=== PATIENT | female | born 1985 | race Caucasian/White ===

== ENCOUNTER 2019-06-26 17:37 | Emergency (ER) | payer OTHER, SELFPAY ==
[2019-06-26 17:46] VITALS: BP 113/69; PULSE 88; RESP 16; TEMP 36.7; O2SAT 100
--- NOTE | 2019-06-26 17:53 | ED.DENTAL ---
HPI - Dental/Oral General Chief complaint: Dental/Oral Stated complaint: tooth problems Time Seen by Provider: 06/26/19 17:48 Source: patient and RN notes reviewed Mode of arrival: ambulatory Limitations: no limitations History of Present Illness HPI Narrative: 33-year-old female presents with concern for dental pain. She reports left upper and lower dental pain. Reports she has an appointment with a dentist tomorrow. Reports long history of problems with her teeth. MD Complaint: tooth pain Teeth map: 1. 2. Broken teeth, caries Related Data Home Medications Medication Instructions Recorded Confirmed Linzess 06/26/19 buspirone 06/26/19 Allergies Allergy/AdvReac Type Severity Reaction Status Date / Time diphenhydramine Allergy Unknown Hives Verified 06/26/19 17:51 Review of Systems Review of Systems: Narrative: CONSTITUTIONAL: Denies malaise, chills, sweats, or fever. EYES: Denies visual changes, redness, or discharge. ENT: Denies rhinorrhea, congestion, sinus pain, otalgia or sore throat. Reports upper and lower dental pain CARDIOVASCULAR: Denies chest pain, palpitations RESPIRATORY: Denies cough or dyspnea. SKIN: Denies facial swelling MUSCULOSKELETAL: Denies myalgia. NEUROLOGIC: Denies headache. All systems reviewed & are unremarkable except as noted in HPI and below PMFSH Social History Social History Smoking status: Current every day smoker Gender identity (if verbalized by the patient): Female Comments At time of signature, agree with nursing past medical, surgical, social and family history. There is no relevant family history pertinent to the presenting complaint Exam Narrative: Exam Narrative: GENERAL: Well-appearing, well-nourished, and in no acute distress. HEAD: Normocephalic, atraumatic. EYES: PERRLA, conjunctivae clear ENT: Nares clear. Mucous membranes moist. Oropharynx without erythema edema, or lesions. No drooling. Many missing teeth, broken teeth, caries. No periapical abscess noted. NECK: Supple. CHEST: No respiratory distress. Speaks in full sentences. HEART: Regular rate and rhythm. SKIN: Warm, dry, no rash. NEURO: Alert and oriented x3. PSYCH: Normal mood and affect Course Course Emergency Course: Patient is aware of diagnosis, understands and agrees to treatment plan. Anticipatory guidance given. Patient agrees to follow-up as directed and is aware of reasons to seek care at the emergency department. Portions of this record may have been created with voice recognition software Vital Signs Vital signs: Vital Signs Temperature 98.0 F 06/26/19 17:46 Pulse Rate 88 06/26/19 17:46 Respiratory Rate 16 06/26/19 17:46 Blood Pressure 113/69 06/26/19 17:46 Pulse Oximetry 100 06/26/19 17:46 Temperature 98.0 F 06/26/19 17:46 Pulse Rate 88 06/26/19 17:46 Respiratory Rate 16 06/26/19 17:46 Blood Pressure 113/69 06/26/19 17:46 Pulse Oximetry 100 06/26/19 17:46 Reviewed. MDM - Dental/Oral MDM Narrative Medical decision making narrative: Patients pain and complaint coupled with physical findings are consistant with dentalgia. There are no focal signs of space occupying lesions that are compromising to the airway; no dysphagia, odynophagia, dysphonia, or dyspnea. No uvular deviation or soft palate edema. Patient is non-toxic appearing. The floor of the mouth is soft with no signs of Jason's Angina; no induration below mandible, no neck pain. Patient is without trismus or drooling and able to swallow secretions. Patient is felt appropriate for discharge home with dental follow up. Critical Care Time Critical Care Time Critical Care Time: No Discharge Plan Discharge Clinical Impression: Toothache Patient Disposition: Home, Self-Care Condition: Stable Instructions: Antibiotic Form, Toothache (ED) Additional Instructions: Take antibiotic as directed Avoid tempe
== END 2019-06-26 18:00 | disposition home or self-care (01) ==
PROVIDERS: Emergency Provider Nurse Practitioner; PCP Family Medicine
DX: K08.89 Other specified disorders of teeth and supporting structures (principal); F17.200 Nicotine dependence, unspecified, uncomplicated
CPT/HCPCS: 99213; G0463

== ENCOUNTER 2019-11-29 17:45 | Emergency (ER) | payer OTHER, SELFPAY ==
[2019-11-29 18:20] VITALS: BP 105/64; PULSE 80; RESP 16; TEMP 36.8; O2SAT 100
[2019-11-29 18:42] LABS: Basophils Percent Auto 0.4 % (0.2-1.2); Eosinophils Absolute Auto 0.2 K/mm3 (0-0.3); Eosinophils Percent Auto 3.5 % (0-4.4); Hematocrit 34.9 % (37.0-47.0); Hemoglobin 11.8 g/dL (12.0-15.0); Immature Granulocyte Absolute 0.01 K/mm3 (0.00-0.031); Immature Granulocyte Percent A 0.2 % (0-0.5); Lymphocytes Percent Auto 38.5 % (18.3-44.2); Mean Corpuscular HGB Conc 33.8 g/dl (32-36); Mean Corpuscular Hemoglobin 30.2 pg (26-34); Mean Corpuscular Volume 89.3 fl (80-100); Mean Platelet Volume 10.6 fl (7.4-10.4); Monocytes Absolute Auto 0.5 K/mm3 (0.1-0.6); Monocytes Percent Auto 9.1 % (2.6-8.5); Neutrophils Absolute Auto 2.8 K/mm3 (1.3-6.7); Neutrophils Percent Auto 48.3 % (45.5-73.1); Platelet Count Result 190 k/mm3 (150-375); Red Blood Count 3.91 M/mm3 (4.2-5.4); Red Cell Distribution Width 12.2 % (11.5-14.5); White Blood Count 5.7 K/mm3 (4.5-10.0)
[2019-11-29 18:45] LABS: Alanine Aminotransferase 12 U/L (4-35); Albumin Level 4.6 g/dL (3.5-5.1); Alkaline Phosphatase 48 U/L (38-126); Anion Gap 10 mmol/L (8-16); Aspartate Amino Transferase 20 U/L (14-36); Bilirubin,Total 0.3 mg/dL (0.2-1.3); Blood Urea Nitrogen 13 mg/dL (7-17); Calcium 9.4 mg/dL (8.4-10.2); Carbon Dioxide 28 mmol/L (22-30); Chloride 101 mmol/L (98-107); Estimated CRCL calculation 89 ml/min; Estimated Glomerular Filt Rate > 60; Glucose 81 mg/dL (65-105); Potassium 4.2 mmol/L (3.4-5.0); Sodium 139 mmol/L (137-145)
[2019-11-29 18:52] LABS: Prothrombin Time 13.2 Seconds (11.1-14.7)
[2019-11-29 18:53] LABS: Partial Thromboplastin Time 29.2 SECONDS (22.3-36.8)
[2019-11-29 19:32] VITALS: BP 101/62; BP 102/68; BP 104/64; PULSE 84; PULSE 87; PULSE 98
--- NOTE | 2019-11-29 20:30 | ED.GIBLEED ---
HPI - GI Bleed General Chief complaint: GI Bleed Stated complaint: rectal bleeding 1-2 pads per hour Time Seen by Provider: 11/29/19 19:44 Source: patient Mode of arrival: ambulatory Limitations: no limitations History of Present Illness HPI Narrative: This patient is a 33 year old female with history of hemorrhoids who presents for evaluation of bright red blood per rectum. Patient states she was having a bowel movement this afternoon and then she saw bright red blood on her tissue. She states she continued to see blood when she wiped for 2 hours. She states in ER she now sees streaks of dark blood on her tissue. She denies abdominal pain, nausea, vomiting or lightheadedness. Related Data Home Medications Medication Instructions Recorded Confirmed Linzess 06/26/19 buspirone 06/26/19 Allergies Allergy/AdvReac Type Severity Reaction Status Date / Time diphenhydramine Allergy Unknown Hives Verified 11/29/19 19:31 Review of Systems Review of Systems: All systems reviewed & are unremarkable except as noted in HPI and below Constitutional: Constitutional: Denies chills and Denies fever(s) Cardiovascular: Cardiovascular: Denies chest pain Respiratory: Respiratory: Denies dyspnea Gastrointestinal: Gastrointestinal: Denies abdominal pain, Denies diarrhea, Denies nausea and Denies vomiting [facility] Social History Social History Smoking status: Current every day smoker Gender identity (if verbalized by the patient): Female Exam Const: General: alert Orientation/consciousness: patient oriented x3 HENMT: Head: normocephalic and atraumatic Ears: TM's normal bilaterally Face and sinus: face symmetric Eyes: EOM: EOMs intact bilaterally Neck: Neck: normal visual inspection Chest: Chest palpation & inspection: normal inspection of the chest Resp: Effort & Inspection: normal respiratory effort, no retractions and no use of accessory muscles Auscultation: clear to auscultation bilaterally and no wheezes Cardio: Rate: regular rate Rhythm: regular rhythm Heart sounds: no murmurs GI: GI Palp: Yes Soft to palpation, No Tenderness to palpation present (GI), No Guarding due to palpation present (GI) and No Rigid due to palpation Rectal Exam: External hemorrhoid(s) present and other (no bleeding, no blood in digital exam) Skin: General skin exam: normal color Rashes: no rashes Course Reevaluation(s) Reevaluation #1: PAtient is no longer having bleeding and her hemoglobin is stable. Date: 11/29/19 Time: 20:38 Vital Signs Vital signs: Vital Signs Temperature 98.2 F 11/29/19 18:20 Pulse Rate 80 11/29/19 18:20 Respiratory Rate 16 11/29/19 18:20 Blood Pressure 105/64 11/29/19 18:20 Pulse Oximetry 100 11/29/19 18:20 Temperature 98.0 F 11/29/19 21:06 Pulse Rate 77 11/29/19 21:06 Respiratory Rate 18 11/29/19 21:06 Blood Pressure 128/80 11/29/19 21:06 Pulse Oximetry 99 11/29/19 21:06 MDM - GI Bleed Lab Data Attestation: I reviewed the patient's lab results. Result diagrams: 11/29/19 18:25 11/29/19 18:25 Labs: Lab Results 11/29/19 11/29/19 11/29/19 Range/Units 18:25 18:25 18:25 WBC 5.7 (4.5-10.0) K/mm3 RBC 3.91 L (4.2-5.4) M/mm3 Hgb 11.8 L (12.0-15.0) g/dL Hct 34.9 L (37.0-47.0) % MCV 89.3 (80-100) fl MCH 30.2 (26-34) pg MCHC 33.8 (32-36) g/dl RDW 12.2 (11.5-14.5) % Plt Count 190 (150-375) k/mm3 MPV 10.6 H (7.4-10.4) fl Immature Gran % (Auto) 0.2 (0-0.5) % Neut % (Auto) 48.3 (45.5-73.1) % Lymph % (Auto) 38.5 (18.3-44.2) % Charlton % (Auto) 9.1 H (2.6-8.5) % Eos % (Auto) 3.5 (0-4.4) % Baso % (Auto) 0.4 (0.2-1.2) % Lymph # (Auto) 2.20 (0.9-3.2) K/mm3 Charlton # (Auto) 0.5 (0.1-0.6) K/mm3 Eos # (Auto) 0.2 (0-0.3) K/mm3 Baso # (Auto) 0.0 (0.0-0.1) K/mm3 Abs Immat Gran (auto)
[2019-11-29 21:06] VITALS: BP 128/80; PULSE 77; RESP 18; TEMP 36.7; O2SAT 99
== END 2019-11-29 21:06 | disposition home or self-care (01) ==
PROVIDERS: Emergency Medicine; Emergency Provider General Practice; PCP Family Medicine
DX: K64.4 Residual hemorrhoidal skin tags (principal); K62.5 Hemorrhage of anus and rectum; F17.200 Nicotine dependence, unspecified, uncomplicated
CPT/HCPCS: 36415; 80053; 85025; 85610; 85730; 86850; 86900; 86901; 99283

== ENCOUNTER 2020-08-06 18:52 | Emergency (ER) | payer OTHER, SELFPAY ==
[2020-08-06 19:03] VITALS: BP 110/70; PULSE 108; RESP 16; TEMP 36.6; O2SAT 100
--- NOTE | 2020-08-06 19:11 | ED.URI ---
HPI - URI/Sore Throat General Chief Complaint: Upper Respiratory Infection Stated Complaint: runny nose/cough Source: patient Mode of arrival: ambulatory Limitations: no limitations History of Present Illness HPI Narrative: Patient is a 34 year old female who presents complaining of sinus pain and pressure x 10 days. Patient reports headache. Patient reports intermittent rhinorrhea and congestion. Patient reports cough x 1 day. She denies shortness of breath. Patient denies taking [id number] medications at this time. Patient denies known exposure to Covid. MD elicited complaint: nasal congestion and sinus pain Related Data Home Medications Medication Instructions Recorded Confirmed BuSpar 08/06/20 Linzess 08/06/20 Allergies Allergy/AdvReac Type Severity Reaction Status Date / Time diphenhydramine Allergy Unknown Hives Verified 08/06/20 19:09 Review of Systems Review of Systems: Narrative: CONSTITUTIONAL: Denies fever, chills, or sweats. EYES: Denies visual changes, redness, or discharge. ENT: Reports rhinorrhea, congestion and facial pain, denies sore throat, or otalgia. CARDIOVASCULAR: Denies chest pain, palpitations, or edema. RESPIRATORY: Reports cough or dyspnea. GASTROINTESTINAL: Denies abdominal pain, nausea, vomiting, or diarrhea. GENITOURINARY: Denies dysuria or hematuria. SKIN: Denies rash or itching. MUSCULOSKELETAL: Denies back pain, joint pain, or myalgia. NEUROLOGIC: Reports headache, denies numbness, dizziness, or weakness. PSYCHIATRIC: Denies anxiety or depression. [facility] Past Medical History Medical History Anxiety IBS (irritable bowel syndrome) Surgical History Surgical History H/O laparoscopy H/O tubal ligation H/O: hysterectomy Social History Social History Smoking status: Current every day smoker Gender identity (if verbalized by the patient): Female Comments At the time of signature, I have reviewed and agree with nursing past medical, surgical, social, and family history unless otherwise noted. Please see nursing chart for further information. There is no relevant family history pertinent to the presenting complaint. Exam Narrative: Exam Narrative: GENERAL: Well-appearing, well-nourished, and in no acute distress. HEAD: Normocephalic, atraumatic. EYES: EOMI. No redness or drainage. Conjunctiva are normal. ENT: Mucous membranes pink and moist. Nares clear. No rhinorrhea. TMs normal bilaterally. Throat mild erythema. Uvula midline. Maxillary sinus tenderness with palpation NECK: AROM. Supple. No lymphadenopathy. CHEST: No respiratory distress. Clear to auscultation. HEART: Regular rate and rhythm. EXTREMITIES: Normal range of motion. SKIN: Warm, dry, no rash. NEURO: No focal deficits. Alert and oriented x3. Gait steady. PSYCH: Normal affect. No signs of depression or anxiety. Course Vital Signs Vital signs: Vital Signs Temperature 36.6 C 08/06/20 19:03 Pulse Rate 108 H 08/06/20 19:03 Respiratory Rate 16 08/06/20 19:03 Blood Pressure 110/70 08/06/20 19:03 Pulse Oximetry 100 08/06/20 19:03 Temperature 36.6 C 08/06/20 19:03 Pulse Rate 108 H 08/06/20 19:03 Respiratory Rate 16 08/06/20 19:03 Blood Pressure 110/70 08/06/20 19:03 Pulse Oximetry 100 08/06/20 19:03 Reviewed MDM - URI/Sore Throat MDM Narrative Medical decision making narrative: Patient most likely has sinusitis. Antibiotics to be prescribed at this time. Discussed with patient follow-up care. Patient is stable for discharge home with outpatient follow-up as needed. Differential Diagnosis Differential diagnosis: Likely upper respiratory infection, otitis media, sinusitis, viral infection, bronchitis and pharyngitis Discharge Plan Discharge Clinical Impression: Sinusitis Qualifiers: Sinus
== END 2020-08-06 19:37 | disposition home or self-care (01) ==
PROVIDERS: Emergency Provider Nurse Practitioner; PCP Family Medicine
DX: J01.00 Acute maxillary sinusitis, unspecified (principal); F17.200 Nicotine dependence, unspecified, uncomplicated
CPT/HCPCS: 99213; G0463

== ENCOUNTER 2020-10-30 15:21 | Emergency (ER) | payer OTHER, SELFPAY ==
--- NOTE | 2020-10-30 15:50 | ED.WOUNDLAC ---
HPI - Wound/Laceration General Chief Complaint: Wound/Laceration Stated Complaint: spider bite Time Seen by Provider: 10/30/20 15:50 Source: patient Limitations: no limitations History of Present Illness HPI narrative: Lachelle Birmingham is a 34 yo female with a PMH of PTSD, anxiety and depression, who comes to [facility] with a bite on her inside of her left Floria arm that happened at 2:30 this afternoon. She states she felt a pinch and that in the last hour has increased from a pinch to a 1 cm erythematous area Related Data Home Medications Medication Instructions Recorded Confirmed BuSpar 08/06/20 Linzess 08/06/20 Allergies Allergy/AdvReac Type Severity Reaction Status Date / Time diphenhydramine Allergy Unknown Hives Verified 08/06/20 19:09 Review of Systems Review of Systems: Narrative: CONSTITUTIONAL: Denies fever, chills, sweats. EYES: Denies visual changes, redness, discharge. ENT: Denies rhinorrhea, congestion, sore throat, otalgia. CARDIOVASCULAR: Denies chest pain, palpitations, edema. RESPIRATORY: Denies dyspnea, wheezing, cough GASTROINTESTINAL: Denies abdominal pain, nausea, vomiting, diarrhea. GENITOURINARY: Denies dysuria, hematuria, abnormal discharge SKIN: Denies rash . Insect bite to the inside of left forearm NEUROLOGIC: Denies numbness, or focal weakness. PSYCHIATRIC: Denies anxiety or depression. [facility] Past Medical History Medical History (Updated 10/30/20 @ 16:06 by Lamar Mckeon CNP) Anxiety Depression IBS (irritable bowel syndrome) PTSD (post-traumatic stress disorder) Surgical History Surgical History H/O laparoscopy H/O tubal ligation H/O: hysterectomy Family History Family History (Updated 10/30/20 @ 16:01 by Lamar Mckeon CNP) Other Alcoholism in family Depression Social History Social History (Updated 10/30/20 @ 16:02 by Lamar Mckeon CNP) Smoking packs per day: 0.5 Smoking cigarettes per day: 10.0 Smoking status: Current every day smoker Alcohol intake: current Gender identity (if verbalized by the patient): Female Comments At time of signature, I agree with nursing past medical, surgical, social and family history. There is no relevant family history pertinent to the presenting complaint. Exam Narrative: Exam Narrative: GENERAL: This is a well-nourished, well-developed patient, in mild distress. Anxious HEAD: normocephalic, atraumatic. EYES: PERRL. Sclera clear/white. Vision is grossly intact. EARS: External ears normal,. Hearing grossly intact. NOSE: External nose normal without nasal discharge, nares without redness, no rhinorrhea. THROAT: Mucous membranes moist, NECK: Neck supple, CARDIOVASCULAR: Regular rate and rhythm without murmurs, gallops, or rubs. RESPIRATORY: Clear to auscultation. Breath sounds equal bilaterally. No wheezes, rales, or rhonchi. GASTROINTESTINAL: Abdomen soft,, SKIN: warm, intact with 1 cm erythematous mildly indurated lesion to left palmar forearm. NEURO: awake, alert, and oriented to person, place and time. There were no obvious focal neurologic abnormalities. Steady gait EXTREMITIES: Normal range of motion. BACK: Nontender without deformity Course Course Emergency Course: Patient brought by insect while sitting on porch about an hour ago and area is a 1 cm raised red area that is both tender and itches. Patient is allergic to Benadryl Given dose of prednisone Prednisone x3 days, Vistaril 25 3 times daily, Pepcid 20 mg x 3 days Vital Signs Vital signs: Vital Signs Temperature 98.2 F 10/30/20 15:52 Pulse Rate 101 H 10/30/20 15:52 Respiratory Rate 10/30/20 15:52 Blood Pressure 98/77 L 10/30/20 15:52 Pulse Oximetry 98 10/30/20 15:52 Temperature 98.2 F 10/30/20 15:52 Pulse Rate 101 H 10/30/20 15:52 Respiratory Rate 10/30/20 15:52 Blood Pressure 98/77 L 10/30/20 15:52 Pulse Oximetry 98 10/30/20 15:52
[2020-10-30 15:52] VITALS: BP 98/77; PULSE 101; RESP 20; TEMP 36.8; O2SAT 98
[2020-10-30] MEDS: predniSONE 20 MG TABLET 60 MG PO (16:16)
== END 2020-10-30 16:28 | disposition home or self-care (01) ==
PROVIDERS: Emergency Provider Nurse Practitioner
DX: S50.862A Insect bite (nonvenomous) of left forearm, initial encounter (principal); W57.XXXA Bitten or stung by nonvenomous insect and other nonvenomous arthropods, initial encounter; F17.210 Nicotine dependence, cigarettes, uncomplicated
CPT/HCPCS: 99213; G0463; J7512

== ENCOUNTER 2020-12-31 01:35 | Emergency (ER) | payer OTHER, SELFPAY ==
--- NOTE | 2020-12-31 01:48 | ED.ABDPAIN ---
HPI - Abdominal Pain General Chief Complaint: Abdominal Pain Stated Complaint: epigastric pain Time Seen by Provider: 12/31/20 01:46 Source: patient Mode of arrival: ambulatory Limitations: no limitations History of Present Illness HPI narrative: Patient is a 35-year-old female complain of epigastric pain, substernal pain, burning, 6 out of 10, nonradiating, started after eating dinner tonight. Patient denies any shortness of breath, nausea, vomiting, diarrhea, fever or chills. Patient denies any urinary symptoms. Related Data Home Medications Medication Instructions Recorded Confirmed BuSpar 08/06/20 Linzess 08/06/20 Allergies Allergy/AdvReac Type Severity Reaction Status Date / Time diphenhydramine Allergy Unknown Hives Verified 12/31/20 02:52 Review of Systems Review of Systems: All systems reviewed & are unremarkable except as noted in HPI and below Constitutional: Constitutional: Denies body ache(s), Denies chills, Denies excessive sweating, Denies fatigue, Denies fever(s), Denies headache(s), Denies lethargy, Denies malaise, Denies weakness and Denies weight loss Eyes: Eyes: Denies blurry vision, Denies change in vision and Denies loss of vision ENT: Denies dizziness, Denies ear discharge, Denies headache(s), Denies lip swelling, Denies epistaxis, Denies nasal congestion, Denies neck pain, Denies throat swelling and Denies tongue swelling Cardiovascular: Cardiovascular: Denies chest pain, Denies chest pain at rest, Denies chest pain with activity, Denies diaphoresis, Denies rapid heart rate, Denies edema, Denies irregular heart rhythm, Denies lightheadedness, Denies palpitations, Denies dyspnea and Denies dyspnea on exertion Respiratory: Respiratory: Denies chest congestion, Denies cough, Denies hemoptysis, Denies dyspnea and Denies dyspnea on exertion Gastrointestinal: Gastrointestinal: Denies melena, Denies hematochezia, Denies diarrhea, Denies nausea, Denies vomiting and Denies hematemesis Musculoskeletal: Musculoskeletal: Denies abnormal gait, Denies deformity, Denies joint swelling, Denies limited range of motion, Denies neck pain and Denies numbness Neurologic: Denies Abnormal speech present, Denies abnormal gait, Denies confusion, Denies dizziness, Denies headache(s), Denies focal weakness, Denies loss of vision, Denies numbness, Denies Other visual disturbances, Denies Sensory deficit (Neuro) and Denies weakness Psychiatric: Psychiatric: Denies confusion, Denies depression, Denies auditory hallucinations, Denies homicidal ideation and Denies suicidal ideation Endocrine: Endocrine: Denies cold intolerance, Denies excessive sweating, Denies fatigue, Denies heat intolerance and Denies palpitations Hematologic/Lymphatic: Hematologic/Lymphatic: Denies easy bleeding and Denies easy bruising Allergic/Immunologic: Allergic/Immunologic: Denies lip swelling, Denies throat swelling and Denies tongue swelling PMFSH Past Medical History Medical History Anxiety Depression IBS (irritable bowel syndrome) PTSD (post-traumatic stress disorder) Surgical History Surgical History H/O laparoscopy H/O tubal ligation H/O: hysterectomy Family History Family History Other Alcoholism in family Depression Social History Social History Smoking packs per day: 0.5 Smoking cigarettes per day: 10.0 Smoking status: Current every day smoker Alcohol intake: current Gender identity (if verbalized by the patient): Female Exam Const: General: cooperative, healthy appearing, comfortable, no acute distress, well developed, alert and awake; No confusion Orientation/consciousness: oriented to person, oriented to place, oriented to time, patient oriented x3 and No confusion Limitations: no li
[2020-12-31 01:57] LABS: Basophils Percent Auto 0.3 % (0.2-1.2); Eosinophils Absolute Auto 0.3 K/mm3 (0-0.3); Eosinophils Percent Auto 2.7 % (0-4.4); Hematocrit 36.4 % (37.0-47.0); Hemoglobin 12.4 g/dL (12.0-15.0); Immature Granulocyte Absolute 0.03 K/mm3 (0.00-0.031); Immature Granulocyte Percent A 0.3 % (0-0.5); Lymphocytes Absolute Auto 2.68 K/mm3 (0.9-3.2); Lymphocytes Percent Auto 28.5 % (18.3-44.2); Mean Corpuscular HGB Conc 34.1 g/dl (32-36); Mean Corpuscular Hemoglobin 31.2 pg (26-34); Mean Corpuscular Volume 91.5 fl (80-100); Monocytes Absolute Auto 0.7 K/mm3 (0.1-0.6); Monocytes Percent Auto 7.8 % (2.6-8.5); Neutrophils Absolute Auto 5.7 K/mm3 (1.3-6.7); Neutrophils Percent Auto 60.4 % (45.5-73.1); Platelet Count Result 206 k/mm3 (150-375); Red Blood Count 3.98 M/mm3 (4.2-5.4); Red Cell Distribution Width 12.2 % (11.5-14.5); White Blood Count 9.4 K/mm3 (4.5-10.0)
[2020-12-31 02:00] VITALS: BP 111/65; PULSE 98; RESP 14; TEMP 36.6; O2SAT 100
--- NOTE | 2020-12-31 02:08 | ECG_ITS ---
Measurements Intervals [place] Rate: 82 P: 70 [place]: 153 QRS: -1 QRSD: 92 T: 54 QT: 354 QTc: 415 Interpretive Statements SINUS RHYTHM INCOMPLETE RIGHT BUNDLE BRANCH BLOCK BASELINE ARTIFACT- II, III, AVR, AVL, AVF, V1-V6 BORDERLINE ECG Electronically Signed On 12-31-2020 6:48:11 CDT by Gagandeep Campo D.O.
[2020-12-31 02:17] LABS: Alanine Aminotransferase 21 U/L (4-35); Albumin Level 4.9 g/dL (3.5-5.1); Alkaline Phosphatase 61 U/L (38-126); Anion Gap 8 mmol/L (8-16); Aspartate Amino Transferase 25 U/L (14-36); Bilirubin,Total 0.2 mg/dL (0.2-1.3); Blood Urea Nitrogen 19 mg/dL (7-17); Calcium 9.5 mg/dL (8.4-10.2); Carbon Dioxide 29 mmol/L (22-30); Chloride 104 mmol/L (98-107); Estimated Glomerular Filt Rate > 60; Glucose 108 mg/dL (65-110); Lipase 87 U/L (23-300); Sodium 141 mmol/L (137-145)
[2020-12-31] MEDS: BELLADONNA ALK/PHENOB ELIX 10 ML, MAG HYDROX/ALUMINUM HYD/SIMETH 30 ML, LIDOCAINE HCL 2... PO (02:45)
[2020-12-31] MEDS: FAMOTIDINE 20 MG TABLET 40 MG PO (02:47)
[2020-12-31 02:52] VITALS: BP 94/70; PULSE 86; RESP 17; O2SAT 100
[2020-12-31 03:45] VITALS: BP 100/60; PULSE 88; RESP 19; O2SAT 97
== END 2020-12-31 03:45 | disposition home or self-care (01) ==
PROVIDERS: Emergency Provider Emergency Medicine
DX: K29.00 Acute gastritis without bleeding (principal); F41.9 Anxiety disorder, unspecified; F32.9 Major depressive disorder, single episode, unspecified; K58.9 Irritable bowel syndrome, unspecified; F43.10 Post-traumatic stress disorder, unspecified; F17.210 Nicotine dependence, cigarettes, uncomplicated; I45.10 Unspecified right bundle-branch block
CPT/HCPCS: 36415; 80053; 83690; 85025; 93005; 99283; A9270

== ENCOUNTER 2021-02-04 09:19 | Emergency (ER) | payer OTHER, SELFPAY ==
[2021-02-04 09:27] VITALS: BP 97/56; PULSE 97; RESP 16; TEMP 36.6; O2SAT 99
--- NOTE | 2021-02-04 09:40 | ED.GENADULT ---
HPI - General Adult General Chief complaint: Upper Respiratory Infection Stated complaint: sore throat Source: patient Mode of arrival: ambulatory Limitations: no limitations History of Present Illness HPI narrative: Patient is a 35-year-old female who presents to the [facility] via POV for evaluation of upper respiratory symptoms that have been present since yesterday. Additionally, she reports sore throat and nasal congestion. She states her throat pain is constant and scratchy and sharp in nature. Denies taking OTC meds for symptoms. Sore throat pain it is soothed by hot tea with honey. Swallowing worsens throat pain. She states her kids are at home with similar signs and symptoms. She reports being fully vaccinated against Covid. Related Data Home Medications Medication Instructions Recorded Confirmed BuSpar 08/06/20 Linzess 08/06/20 Allergies Allergy/AdvReac Type Severity Reaction Status Date / Time diphenhydramine Allergy Unknown Hives Verified 02/04/21 09:34 Review of Systems Review of Systems: Denies history of COPD, bronchitis, asthma, and pneumonia. Currently smokes 1/2 pack of cigarettes a day. Pertinent negatives: fever, sweats, chills, change in appetite, fatigue, skin color changes, headache, nasal discharge, dizziness, lymphadenopathy, sinus pain, sinus dry, drooling, difficulty swallowing, voice changes, ear pain/drainage, chest pain, heart murmurs, heart palpitations, shortness of breath, wheezing, cyanosis, hemoptysis, hoarseness, orthopnea, pleuritic pain, nausea, vomiting, diarrhea, and myalgias. [facility] Past Medical History Medical History Anxiety Depression IBS (irritable bowel syndrome) PTSD (post-traumatic stress disorder) Surgical History Surgical History H/O laparoscopy H/O tubal ligation H/O: hysterectomy Family History Family History Other Alcoholism in family Depression Social History Social History Smoking packs per day: 0.5 Smoking cigarettes per day: 10.0 Smoking status: Current every day smoker Alcohol intake: current Gender identity (if verbalized by the patient): Female Comments I have reviewed and agree with the patient's past medical, surgical, social, and family hx as documented by the RN. There is no relevant family history pertinent to the presenting complaint. Exam Narrative: GENERAL: Well-appearing, well-nourished, and in no acute distress. HEAD: Normocephalic, atraumatic. No sinus tenderness or facial swelling appreciated. EYES: PERRLA and EOMI. No evidence of erythema, swelling, or drainage. ENT: Bilateral external ears and ear canals normal. Bilateral TMs are normal.No TM perforation. Nares clear, no rhinorrhea or epistaxis. Bilateral turbinates without erythema/ swelling. Mucous membranes moist and pink. Uvula is midline without erythema and swelling. Posterior pharynx is mildly erythematous. No evidence of petechial rash, cobblestoning, lesions, ulcers, swelling, exudates, peritonsillar abscess, tenting, or drooling. Breath odor and voice normal. NECK: Supple. No Lymphadenopathy or nuchal rigidity appreciated. CHEST: Bilateral lung saab are clear to auscultation. No respiratory distress. No evidence of cough or pleuritic cp upon examination. HEART: Regular rate and rhythm. No murmur, gallop, or rub heard. EXTREMITIES: Normal range of motion. No edema. SKIN: Warm, dry, no rash. NEURO: No focal deficits. Alert and oriented x3. Course Course Emergency Course: The patient/guardian displays adequate decision making capability and despite a detailed discussion of alternatives, benefits, risks, and consequences refuses COVID-19 testing Vital Signs Vital signs: Vital Signs Temperature 97.9 F 02/04
== END 2021-02-04 09:55 | disposition home or self-care (01) ==
PROVIDERS: Emergency Provider Nurse Practitioner Family
DX: J06.9 Acute upper respiratory infection, unspecified (principal); F17.210 Nicotine dependence, cigarettes, uncomplicated; F41.9 Anxiety disorder, unspecified; F32.A Depression, unspecified; F43.10 Post-traumatic stress disorder, unspecified
CPT/HCPCS: 87081; 87880; 99213; G0463

== ENCOUNTER 2021-02-21 15:05 | Emergency (ER) | payer OTHER, SELFPAY ==
[2021-02-21 15:13] VITALS: BP 102/64; PULSE 96; RESP 16; TEMP 36.8; O2SAT 100
[2021-02-21 15:14] VITALS: BP 102/64; PULSE 96; RESP 16; TEMP 36.8; O2SAT 100
--- NOTE | 2021-02-21 15:23 | ED.EAR ---
HPI - Ear Problem General Chief complaint: Ear Stated complaint: Ear Pain Source: patient and RN notes reviewed Mode of arrival: ambulatory Limitations: no limitations History of Present Illness HPI Narrative: Lachelle is a 35-year-old female patient who ambulated into the [facility]. Patient states she she think she has a stye in her left eye and is having severe pain. Patient states that she has been using warm wet rags. Patient also states that she has severe left ear pain with clear sticky drainage. Patient states the ear pain started 2 days ago. MD Complaint: ear pain Location: left ear Related Data Home Medications Medication Instructions Recorded Confirmed BuSpar 02/21/21 linaclotide [Linzess] 290 mcg PO DAILY 02/21/21 02/21/21 Allergies Allergy/AdvReac Type Severity Reaction Status Date / Time diphenhydramine Allergy Unknown Hives Verified 02/21/21 15:13 Review of Systems Review of Systems: CONSTITUTIONAL: Denies body aches, fever, chills, or sweats. EYES: Denies visual changes,+ redness, +discharge. ENT: Denies rhinorrhea, congestion, sore throat, or + left otalgia. CARDIOVASCULAR: Denies chest pain, palpitations, or edema. RESPIRATORY: Denies cough or dyspnea. GASTROINTESTINAL: Denies abdominal pain, nausea, vomiting, or diarrhea. GENITOURINARY: Denies dysuria or hematuria. SKIN: Denies rash, itching, or wounds. MUSCULOSKELETAL: Denies back pain, joint pain, or myalgia. NEUROLOGIC: Denies headache, numbness, tingling, or weakness. PSYCH: Denies depression or anxiety. All systems reviewed & are unremarkable except as noted in HPI and below PMFSH Past Medical History Medical History Anxiety Depression IBS (irritable bowel syndrome) PTSD (post-traumatic stress disorder) Surgical History Surgical History H/O laparoscopy H/O tubal ligation H/O: hysterectomy Family History Family History Other Alcoholism in family Depression Social History Social History Smoking packs per day: 0.5 Smoking cigarettes per day: 10.0 Smoking status: Current every day smoker Alcohol intake: current Gender identity (if verbalized by the patient): Female Comments At time of signature, I have reviewed and agree with nursing past medical, surgical, social and family history unless otherwise noted. Please see nursing chart for further information. There is no relevant family history pertinent to the presenting complaint Exam Narrative: GENERAL: Well-appearing, well-nourished, and in no acute distress. HEAD: Normocephalic, atraumatic. EYES: EOMI.. Conjunctivae normal, hordoleum left upper lid, left eye with mild erythema, minimal yellow drainage in corner ENT: Mucous membranes pink and moist. Nares clear. No rhinorrhea. Left tympanic membrane is erythemic. Moderate amount of light brown cerumen in canal. Left tympanic membrane is bulging. Left canal is erythemic with scattered abrasions. NECK: Normal AROM. Supple. . CHEST: No respiratory distress. MUSCULOSKELETAL: No bony tenderness. EXTREMITIES: Normal range of motion. No edema. SKIN: Warm, dry, no rash. Capillary refill normal. Normal skin turgor. NEURO: No focal deficits. Alert and oriented x3. Gait steady. PSYCH: Normal affect. No signs of depression or anxiety. Course Vital Signs Vital signs: Vital Signs Temperature 36.8 C 02/21/21 15:13 Pulse Rate 96 02/21/21 15:13 Respiratory Rate 16 02/21/21 15:13 Blood Pressure 102/64 02/21/21 15:13 Pulse Oximetry 100 02/21/21 15:13 Temperature 36.8 C 02/21/21 15:14 Pulse Rate 96 02/21/21 15:14 Respiratory Rate 16 02/21/21 15:14 Blood Pressure 102/64 02/21/21 15:14 Pulse Oximetry 100 02/21/21 15:14 Reviewed Medical Decision Making D
== END 2021-02-21 15:35 | disposition home or self-care (01) ==
PROVIDERS: Emergency Provider Nurse Practitioner Family
DX: H66.002 Acute suppurative otitis media without spontaneous rupture of ear drum, left ear (principal); H00.014 Hordeolum externum left upper eyelid; F17.210 Nicotine dependence, cigarettes, uncomplicated; F41.9 Anxiety disorder, unspecified; F32.A Depression, unspecified
CPT/HCPCS: 99213; G0463

== ENCOUNTER 2021-05-16 15:44 | Emergency (ER) | payer OTHER, SELFPAY ==
[2021-05-16 15:52] VITALS: BP 103/67; PULSE 103; RESP 18; TEMP 36.7; O2SAT 100
--- NOTE | 2021-05-16 16:01 | ED.URI ---
HPI - URI/Sore Throat General Chief Complaint: Upper Respiratory Infection Stated Complaint: Headache,Congestion Time Seen by Provider: 05/16/21 16:01 Source: patient, family, RN notes reviewed and old records reviewed Mode of arrival: ambulatory Limitations: no limitations History of Present Illness HPI Narrative: 35-year-old female presents to the [facility] with complaints of nasal congestion and low-grade fevers for 2 days. Reports low-grade fevers no higher than 101. has been taking DayQuil. Patient reports intermittent chest wall discomfort when taking a deep breath. Denies any chest pain currently. Denies abdominal pain. No nausea vomiting or diarrhea. MD elicited complaint: fever and nasal congestion Related Data Home Medications Medication Instructions Recorded Confirmed linaclotide [Linzess] 290 mcg PO DAILY 02/21/21 05/16/21 buspirone [BuSpar] 10 mg PO BID 05/16/21 05/16/21 Allergies Allergy/AdvReac Type Severity Reaction Status Date / Time diphenhydramine Allergy Unknown Hives Verified 05/16/21 15:57 Review of Systems Review of Systems: All systems reviewed & are unremarkable except as noted in HPI and below Constitutional: Constitutional: Reports no additional constitutional complaints, Denies chills, Denies fever(s) and Denies headache(s) Eyes: Eyes: Reports no additional eye complaints ENT: Reports as per HPI, Denies vertigo, Denies dizziness, Denies headache(s), Reports nasal congestion and Denies sore throat Comments: Frontal and maxillary sinus pain and pressure Cardiovascular: Cardiovascular: Reports as per HPI, Reports chest pain (Chest wall), Denies syncope, Denies rapid heart rate and Denies dyspnea Respiratory: Respiratory: Reports no additional respiratory complaints, Denies cough, Denies dyspnea and Denies wheezing Gastrointestinal: Gastrointestinal: Reports no additional gastrointestinal complaints, Denies abdominal pain, Denies diarrhea, Denies nausea and Denies vomiting Musculoskeletal: Musculoskeletal: Reports no additional musculoskeletal complaints and Denies numbness Integumentary/Breasts: Skin/Breast: Reports system reviewed and no additional complaints, except as docu Neurologic: Reports system reviewed and no additional complaints, except as documented, Denies vertigo, Denies dizziness, Denies syncope, Denies headache(s), Denies focal weakness and Denies numbness Psychiatric: Psychiatric: Reports no additional psychiatric complaints Allergic/Immunologic: Allergic/Immunologic: Reports no additional allergic/immunologic complaints and Denies wheezing PMFSH Past Medical History Medical History Anxiety Depression IBS (irritable bowel syndrome) PTSD (post-traumatic stress disorder) Surgical History Surgical History H/O laparoscopy H/O tubal ligation H/O: hysterectomy Family History Family History Other Alcoholism in family Depression Social History Social History Smoking packs per day: 0.5 Smoking cigarettes per day: 10.0 Smoking status: Current every day smoker Alcohol intake: current Gender identity (if verbalized by the patient): Female Comments At the time of my signature, I reviewed and agree with the nursing past medical, surgical, social, and family history. There is no relevant family history pertinent to the patient complaint. Exam Const: General: cooperative, healthy appearing, no acute distress, well developed and alert Nutritional Appearance: well nourished Orientation/consciousness: patient oriented x3 Limitations: no limitations HENMT: Head: normal to inspection Ears: external ears normal, TM's normal bilaterally and EAC's normal Eyes: Conjunctivae: conjunctivae normal Pupils: Equal, round and reactive pupils present Neck: Neck: nor
== END 2021-05-16 16:33 | disposition home or self-care (01) ==
PROVIDERS: Emergency Provider Nurse Practitioner
DX: J01.40 Acute pansinusitis, unspecified (principal); F17.210 Nicotine dependence, cigarettes, uncomplicated; F41.9 Anxiety disorder, unspecified; F32.A Depression, unspecified; F43.10 Post-traumatic stress disorder, unspecified
CPT/HCPCS: 87804; 99213; G0463

== ENCOUNTER 2021-05-19 18:59 | Emergency (ER) | payer OTHER, SELFPAY ==
[2021-05-19 19:03] VITALS: BP 116/75; PULSE 102; RESP 16; O2SAT 100
--- NOTE | 2021-05-19 21:25 | ED.HA ---
HPI - Headache General Chief Complaint: Headache Stated Complaint: headache Time Seen by Provider: 05/19/21 21:00 Source: patient History of Present Illness HPI Narrative: Patient presents with frontal headache. She reports she has had pain for the past 6 days worse over the past 2 days and is associated with nausea and photophobia. She was seen in urgent care given Flonase and steroids but has not alleviated her symptoms. She has not noted any fevers, cough, congestion. She reports her normal stool is soft denies any blood or bile or melena. She denies any chest pain or shortness of breath. She reports her son was sick recently and had cough and congestion. Related Data Home Medications Medication Instructions Recorded Confirmed linaclotide [Linzess] 290 mcg PO DAILY 02/21/21 05/16/21 buspirone [BuSpar] 10 mg PO BID 05/16/21 05/16/21 Allergies Allergy/AdvReac Type Severity Reaction Status Date / Time diphenhydramine Allergy Unknown Hives Verified 05/19/21 21:40 Review of Systems Review of Systems: CONSTITUTIONAL: Denies fever, chills, or sweats. EYES: Denies visual changes, redness, or discharge. ENT: Denies rhinorrhea, congestion, sore throat, or otalgia. CARDIOVASCULAR: Denies chest pain, palpitations, or edema. RESPIRATORY: Denies cough or dyspnea. GASTROINTESTINAL: Denies abdominal pain, vomiting, or diarrhea. GENITOURINARY: Denies dysuria or hematuria. SKIN: Denies rash or itching. MUSCULOSKELETAL: Denies back pain, joint pain, or myalgia. NEUROLOGIC: Denies numbness, dizziness, or weakness. PSYCHIATRIC: Denies anxiety or depression. All systems reviewed & are unremarkable except as noted in HPI and below PMFSH Past Medical History Medical History Anxiety Depression IBS (irritable bowel syndrome) PTSD (post-traumatic stress disorder) Surgical History Surgical History H/O laparoscopy H/O tubal ligation H/O: hysterectomy Family History Family History Other Alcoholism in family Depression Social History Social History Smoking packs per day: 0.5 Smoking cigarettes per day: 10.0 Smoking status: Current every day smoker Alcohol intake: current Gender identity (if verbalized by the patient): Female Exam Narrative: GENERAL: Well-appearing, well-nourished, and in no acute distress. HEAD: Normocephalic, atraumatic. EYES: PERRLA and EOMI. ENT: Nares clear, no rhinorrhea or epistaxis. Mucous membranes moist. NECK: Supple. No masses. No JVD CHEST: Clear to auscultation. No respiratory distress. No wheezes rales or rhonchi HEART: Regular rate and rhythm. No murmur heard. Normal peripheral pulses. ABDOMEN: Soft, nontender, nondistended, normal active bowel sounds. EXTREMITIES: Normal range of motion. No edema. SKIN: Warm, dry, no rash. NEURO: Cranial nerves II through XII are intact patient has 5 out of 5 strength in all extremities sensation intact to light touch in all extremities alert and oriented x3. PSYCH: Normal mood and affect. Course Reevaluation(s) Reevaluation #1: Patient reports symptoms are improving Date: 05/19/21 Time: 22:21 Reevaluation #2: Patient continues report feeling improved and is comfortable manage her symptoms at home. Date: 05/19/21 Time: 22:43 Vital Signs Vital signs: Vital Signs Pulse Rate 102 H 05/19/21 19:03 Respiratory Rate 16 05/19/21 19:03 Blood Pressure 116/75 05/19/21 19:03 Pulse Oximetry 100 05/19/21 19:03 Pulse Rate 94 05/19/21 21:35 Respiratory Rate 18 05/19/21 21:35 Blood Pressure 117/83 05/19/21 21:35 Pulse Oximetry 97 05/19/21 21:35 MDM - Headache MDM Narrative Medical decision making narrative: H&P as above, vss, pt looks clinically well, exam without focal neurological deficits, labs
[2021-05-19 21:35] VITALS: BP 117/83; PULSE 94; RESP 18; O2SAT 97
[2021-05-19] MEDS: SODIUM CHLORIDE 0.9% IV 1,000 ML 999 ML IV CONT (21:38)
[2021-05-19] MEDS: KETOROLAC 15 MG/ML VIAL (*BKC) IV PUSH (21:39)
[2021-05-19] MEDS: PROCHLORPERAZINE EDISYLATE 10 MG/2 ML VIAL IV PUSH (21:39)
[2021-05-19] MEDS: ACETAMINOPHEN 500 MG TABLET 1000 MG PO (21:39)
== END 2021-05-19 23:01 | disposition home or self-care (01) ==
PROVIDERS: Emergency Provider Emergency Medicine
DX: R51.9 Headache, unspecified (principal); K58.9 Irritable bowel syndrome, unspecified; F41.9 Anxiety disorder, unspecified; F32.A Depression, unspecified; F43.10 Post-traumatic stress disorder, unspecified; F17.210 Nicotine dependence, cigarettes, uncomplicated
CPT/HCPCS: 96361; 96374; 96375; 99284; A9270; J0780; J1885; J7030

== ENCOUNTER 2021-12-29 09:29 | Emergency (ER) | payer OTHER, SELFPAY ==
[2021-12-29 09:41] VITALS: BP 100/62; PULSE 94; RESP 16; TEMP 37.1; O2SAT 98
--- NOTE | 2021-12-29 10:08 | ED.URI ---
HPI - URI/Sore Throat General Chief Complaint: Upper Respiratory Infection Stated Complaint: uri Time Seen by Provider: 12/29/21 10:08 Source: patient, RN notes reviewed and old records reviewed Mode of arrival: ambulatory Limitations: no limitations History of Present Illness HPI Narrative: 36-year-old female presents to the [facility] with complaints of a stuffy nose that started when she woke up this morning. Patient patient states that she had to drop off her son after taking him to the advanced nursing professor and came right here. Has not taken anything for her symptoms. Related Data Home Medications Medication Instructions Recorded Confirmed linaclotide 290 mcg capsule 290 mcg PO DAILY 02/21/21 05/16/21 (Linzess) buspirone 10 mg tablet 10 mg PO BID 05/16/21 05/16/21 Allergies Allergy/AdvReac Type Severity Reaction Status Date / Time diphenhydramine Allergy Unknown Hives Verified 12/29/21 10:06 Review of Systems Review of Systems: All systems reviewed & are unremarkable except as noted in HPI and below Constitutional: Constitutional: Reports no additional constitutional complaints, Denies chills and Denies fever(s) Eyes: Eyes: Reports no additional eye complaints ENT: Reports as per HPI and Reports nasal congestion Cardiovascular: Cardiovascular: Reports no additional cardiovascular complaints Respiratory: Respiratory: Reports no additional respiratory complaints Gastrointestinal: Gastrointestinal: Reports no additional gastrointestinal complaints Musculoskeletal: Musculoskeletal: Reports no additional musculoskeletal complaints Integumentary/Breasts: Skin/Breast: Reports system reviewed and no additional complaints, except as docu Neurologic: Reports system reviewed and no additional complaints, except as documented Psychiatric: Psychiatric: Reports no additional psychiatric complaints Allergic/Immunologic: Allergic/Immunologic: Reports no additional allergic/immunologic complaints [facility] Past Medical History Medical History Anxiety Depression IBS (irritable bowel syndrome) PTSD (post-traumatic stress disorder) Surgical History Surgical History H/O laparoscopy H/O tubal ligation H/O: hysterectomy Family History Family History Other Alcoholism in family Depression Social History Social History Smoking packs per day: 0.5 Smoking cigarettes per day: 10.0 Smoking status: Current every day smoker Alcohol intake: current Gender identity (if verbalized by the patient): Female Comments At the time of my signature, I reviewed and agree with the nursing past medical, surgical, social, and family history. There is no relevant family history pertinent to the patient complaint. Exam Const: General: healthy appearing, no acute distress and alert Nutritional Appearance: well nourished Orientation/consciousness: patient oriented x3 Limitations: no limitations HENMT: Head: normal to inspection Ears: external ears normal, EAC's normal and TM abnormal bulging bilateral and with fluid behind the TM bilateral; not bullous, not dull, not with effusion, not erythematous and with no loss of landmarks Throat: tonsils normal, uvula midline, posterior oropharynx abnormal cobblestoning and postnasal drainage Eyes: General: appearance normal, both eyes and all related structures Conjunctivae: conjunctivae normal Pupils: Equal, round and reactive pupils present Neck: Neck: normal visual inspection, no lymphadenopathy and no meningeal signs Chest: Chest palpation & inspection: normal inspection of the chest Resp: Effort & Inspection: normal respiratory effort and no use of accessory muscles Auscultation: clear to auscultation bilaterally, no crackles, no rales, no rhonchi and no wheeze
== END 2021-12-29 10:20 | disposition home or self-care (01) ==
PROVIDERS: Emergency Provider Nurse Practitioner
DX: J30.9 Allergic rhinitis, unspecified (principal); H65.03 Acute serous otitis media, bilateral; R09.82 Postnasal drip; F17.210 Nicotine dependence, cigarettes, uncomplicated; F41.9 Anxiety disorder, unspecified; F32.A Depression, unspecified
CPT/HCPCS: 99213; G0463

== ENCOUNTER 2022-01-24 16:55 | Emergency (ER) | payer OTHER, SELFPAY ==
[2022-01-24 17:05] VITALS: BP 92/57; PULSE 87; RESP 16; TEMP 36.6; O2SAT 100
--- NOTE | 2022-01-24 17:06 | ED.DENTAL ---
HPI - Dental/Oral General Chief complaint: Dental/Oral Stated complaint: Dental Pain Time Seen by Provider: 01/24/22 17:06 Source: patient Mode of arrival: ambulatory Limitations: no limitations History of Present Illness HPI Narrative: 36-year-old female presents concern for right upper and lower. She reports chronic decay, missing teeth, broken teeth that she has been working with a dentist with. She denies any new dental trauma. Denies trouble swallowing or fever. MD Complaint: tooth pain Related Data Home Medications Medication Instructions Recorded Confirmed linaclotide 290 mcg capsule 290 mcg PO DAILY 02/21/21 01/24/22 (Linzess) buspirone 10 mg tablet 10 mg PO BID 05/16/21 01/24/22 Allergies Allergy/AdvReac Type Severity Reaction Status Date / Time diphenhydramine Allergy Unknown Hives Verified 01/24/22 17:05 Review of Systems Review of Systems: CONSTITUTIONAL: Denies malaise, chills, sweats, or fever. EYES: Denies visual changes ENT: Denies rhinorrhea, congestion, sinus pain, otalgia or sore throat. Reports right upper and lower dental pain CARDIOVASCULAR: Denies chest pain, palpitations RESPIRATORY: Denies cough or dyspnea. SKIN: Denies rash or itching. MUSCULOSKELETAL: Denies myalgia. NEUROLOGIC: Denies numbness, weakness, or headache. All systems reviewed & are unremarkable except as noted in HPI and below PMFSH Past Medical History Medical History Anxiety Depression IBS (irritable bowel syndrome) PTSD (post-traumatic stress disorder) Surgical History Surgical History H/O laparoscopy H/O tubal ligation H/O: hysterectomy Family History Family History Other Alcoholism in family Depression Social History Social History Smoking packs per day: 0.5 Smoking cigarettes per day: 10.0 Smoking status: Current every day smoker Alcohol intake: current Gender identity (if verbalized by the patient): Female Comments At time of signature, agree with nursing past medical, surgical, social and family history. There is no relevant family history pertinent to the presenting complaint Exam Narrative: GENERAL: Well-appearing, well-nourished, and in no acute distress. HEAD: Normocephalic, atraumatic. EYES: PERRLA, sclera clear ENT: Nares clear, turbinates pink, no rhinorrhea or epistaxis. Mucous membranes moist. TM pearly gomes with sharp light reflex bilaterally; no tragal tenderness. Oropharynx without erythema or lesions. Tonsils not enlarged and without exudate. Missing teeth, broken teeth, caries no visible or palpable abscesses noted NECK: Supple. No lymphadenopathy. CHEST: No respiratory distress. Speaks in full sentences. HEART: Regular rate and rhythm. SKIN: Warm, dry, no visible rash. NEURO: Alert and oriented x3. PSYCH: Normal mood and affect Course Course Emergency Course: Patient is aware of diagnosis, understands and agrees to treatment plan. Anticipatory guidance given. Patient agrees to follow-up as directed and is aware of reasons to seek care at the emergency department. Portions of this record may have been created with voice recognition software Level of Care: Express Care Visit Vital Signs Vital signs: Reviewed. MDM - Dental/Oral MDM Narrative Medical decision making narrative: Patients pain and complaint coupled with physical findings are consistant with dentalgia. There are no focal signs of space occupying lesions that are compromising to the airway; no dysphagia, odynophagia, dysphonia, or dyspnea. No uvular deviation or soft palate edema. Patient is non-toxic appearing. The floor of the mouth is soft with no signs of Jason's Angina; no induration below mandible, no neck pain. Patient is without trismus or drooling and able to swallow
[2022-01-24 17:12] VITALS: BP 92/57; PULSE 87; RESP 16; TEMP 36.6; O2SAT 100
== END 2022-01-24 17:17 | disposition home or self-care (01) ==
PROVIDERS: Emergency Provider Nurse Practitioner; PCP Physician Assistant
DX: K08.89 Other specified disorders of teeth and supporting structures (principal); F17.219 Nicotine dependence, cigarettes, with unspecified nicotine-induced disorders; F41.9 Anxiety disorder, unspecified; F32.A Depression, unspecified; F43.10 Post-traumatic stress disorder, unspecified
CPT/HCPCS: 99213; G0463

== ENCOUNTER 2022-02-26 09:56 | Emergency (ER) | payer OTHER, SELFPAY ==
[2022-02-26 10:05] VITALS: BP 105/56; PULSE 103; RESP 18; TEMP 36.9; O2SAT 100
--- NOTE | 2022-02-26 10:09 | ED.URI ---
HPI - URI/Sore Throat General Chief Complaint: Upper Respiratory Infection Stated Complaint: stuffy nose, cough, sore throat Time Seen by Provider: 02/26/22 10:10 Source: patient, RN notes reviewed and old records reviewed Mode of arrival: ambulatory Limitations: no limitations History of Present Illness HPI Narrative: 36-year-old female presents to the [facility] with stuffy nose that started last night, cough and sore throat started this morning. Has not taken anything for her symptoms. Related Data Home Medications Medication Instructions Recorded Confirmed linaclotide 290 mcg capsule 290 mcg PO DAILY 02/21/21 01/24/22 (Linzess) buspirone 10 mg tablet 10 mg PO BID 05/16/21 01/24/22 Allergies Allergy/AdvReac Type Severity Reaction Status Date / Time diphenhydramine Allergy Unknown Hives Verified 02/26/22 10:12 Review of Systems Review of Systems: All systems reviewed & are unremarkable except as noted in HPI and below Constitutional: Constitutional: Reports no additional constitutional complaints, Denies chills and Denies fever(s) Eyes: Eyes: Reports no additional eye complaints ENT: Reports system reviewed and no additional complaints, except as documented Cardiovascular: Cardiovascular: Reports no additional cardiovascular complaints Respiratory: Respiratory: Reports no additional respiratory complaints Gastrointestinal: Gastrointestinal: Reports no additional gastrointestinal complaints Musculoskeletal: Musculoskeletal: Reports no additional musculoskeletal complaints Integumentary/Breasts: Skin/Breast: Reports system reviewed and no additional complaints, except as docu Neurologic: Reports system reviewed and no additional complaints, except as documented Psychiatric: Psychiatric: Reports no additional psychiatric complaints Allergic/Immunologic: Allergic/Immunologic: Reports no additional allergic/immunologic complaints [facility] Past Medical History Medical History Anxiety Depression IBS (irritable bowel syndrome) PTSD (post-traumatic stress disorder) Surgical History Surgical History H/O laparoscopy H/O tubal ligation H/O: hysterectomy Family History Family History Other Alcoholism in family Depression Social History Social History Smoking packs per day: 0.5 Smoking cigarettes per day: 10.0 Smoking status: Current every day smoker Alcohol intake: current Gender identity (if verbalized by the patient): Female Comments At the time of my signature, I reviewed and agree with the nursing past medical, surgical, social, and family history. There is no relevant family history pertinent to the patient complaint. Exam Const: General: healthy appearing, comfortable, no acute distress, well developed, alert and well nourished Nutritional Appearance: well nourished Orientation/consciousness: patient oriented x3 Limitations: no limitations HENMT: Head: normal to inspection Ears: external ears normal, TM's normal bilaterally and EAC's normal Face/Nose/Sinus: Normal external nose present and Normal nares present Face and sinus: normal facial exam Mouth: Yes Normal oral and palatal mucosa present, Yes lip normal and Yes moist mucous membranes Throat: posterior oropharynx normal and uvula midline Eyes: General: appearance normal, both eyes and all related structures Pupils: Equal, round and reactive pupils present Neck: Neck: normal visual inspection, full ROM, no lymphadenopathy and no meningeal signs Chest: Chest palpation & inspection: normal inspection of the chest Resp: Effort & Inspection: normal respiratory effort and no use of accessory muscles Auscultation: clear to auscultation bilaterally, no crackles, no rales, no rhonchi and no wheezes Cardio:
== END 2022-02-26 10:54 | disposition home or self-care (01) ==
PROVIDERS: Emergency Provider Nurse Practitioner
DX: J06.9 Acute upper respiratory infection, unspecified (principal); F17.210 Nicotine dependence, cigarettes, uncomplicated; Z20.822 Contact with and (suspected) exposure to COVID-19
CPT/HCPCS: 87081; 87426; 87804; 87880; 99213; C9803; G0463

== ENCOUNTER 2022-03-04 17:11 | Emergency (ER) | payer OTHER, SELFPAY ==
[2022-03-04 17:17] VITALS: BP 106/67; PULSE 97; RESP 16; TEMP 37.4; O2SAT 100
[2022-03-04] MEDS: HYDROcodone/acetaminophen (*CRX) 5-325 MG TABLET 1 TAB PO (18:14)
--- NOTE | 2022-03-04 19:18 | ED.DENTAL ---
HPI - Dental/Oral General Chief complaint: Dental/Oral Stated complaint: DENTAL PAIN Time Seen by Provider: 03/04/22 17:36 History of Present Illness HPI Narrative: Patient is a 36-year-old female who presents ER with dental pain. Ongoing for 2 days. Aching right-sided. Feels like she started to have some swelling. Worse of the lower jaw. Has pain with chewing and with drinking. No recent trauma. Has known poor dentition. Does not have dental insurance and has trouble getting in with a dentist. Related Data Home Medications Medication Instructions Recorded Confirmed linaclotide 290 mcg capsule 290 mcg PO DAILY 02/21/21 01/24/22 (Linzess) buspirone 10 mg tablet 10 mg PO BID 05/16/21 01/24/22 Allergies Allergy/AdvReac Type Severity Reaction Status Date / Time diphenhydramine Allergy Unknown Hives Verified 03/04/22 17:22 Review of Systems Review of Systems: All systems reviewed & are unremarkable except as noted in HPI and below Constitutional: Constitutional: Denies chills and Denies fever(s) ENT: Denies dysphagia Comments: Dental pain Respiratory: Respiratory: Denies cough and Denies dyspnea Gastrointestinal: Gastrointestinal: Denies nausea and Denies vomiting PMFSH Past Medical History Medical History Anxiety Depression IBS (irritable bowel syndrome) PTSD (post-traumatic stress disorder) Surgical History Surgical History H/O laparoscopy H/O tubal ligation H/O: hysterectomy Family History Family History Other Alcoholism in family Depression Social History Social History Smoking packs per day: 0.5 Smoking cigarettes per day: 10.0 Smoking status: Current every day smoker Alcohol intake: current Gender identity (if verbalized by the patient): Female Exam Narrative: GENERAL: Well-appearing, well-nourished, and in no acute distress. HEAD: Normocephalic, atraumatic. ENT: Mucous membranes moist. Poor dentition with tenderness to the lower jaw. No discernible abscess or facial swelling. NECK: Supple. NEURO: Alert and oriented x3. PSYCH: Normal mood and affect. Course Vital Signs Vital signs: Vital Signs Temperature 99.3 F 03/04/22 17:17 Pulse Rate 97 03/04/22 17:17 Respiratory Rate 16 03/04/22 17:17 Blood Pressure 106/67 03/04/22 17:17 Pulse Oximetry 100 03/04/22 17:17 Oxygen Delivery Room Air 03/04/22 17:17 Temperature 99.3 F 03/04/22 17:17 Pulse Rate 97 03/04/22 17:17 Respiratory Rate 16 03/04/22 17:17 Blood Pressure 106/67 03/04/22 17:17 Pulse Oximetry 100 03/04/22 17:17 Oxygen Delivery Room Air 03/04/22 17:17 Discharge Plan Discharge Clinical Impression: Pain, dental Patient Disposition: Home, Self-Care Condition: Stable Instructions: Antibiotic Form, Toothache (ED) Additional Instructions: Return the ER if you cannot reach, you cannot swallow, you have chest pain or shortness of breath, you have additional concerns. Prescriptions: New hydrocodone-acetaminophen 5-325 mg tablet 1 tablet PO Q6H PRN (Reason: pain) Qty: 10 0RF amoxicillin-pot clavulanate 875-125 mg tablet 1 tablet PO Q12H Qty: 20 0RF No Action Linzess 290 mcg capsule 290 mcg PO DAILY buspirone [BuSpar] 10 mg Tablet 10 mg PO BID methylprednisolone [Medrol (Brendan)] 4 mg tablets,dose pack See Rx Instructions PO .COMPLEX Qty: 21 0RF Rx Instructions: orally per package directions fluticasone propionate [Flonase Allergy Relief] 50 mcg/actuation spray,suspension 2 spray intranasal DAILY Qty: 16 0RF Rx Instructions: administer into each nostril loratadine 10 mg tablet 10 mg PO DAILY Qty: 30 0RF Follow-up/Referrals: Dental Referral Line [Outside] - 1 Week PHY
== END 2022-03-04 19:46 | disposition home or self-care (01) ==
PROVIDERS: Emergency Provider Emergency Medicine
DX: K08.89 Other specified disorders of teeth and supporting structures (principal); K58.9 Irritable bowel syndrome, unspecified; F41.9 Anxiety disorder, unspecified; F32.A Depression, unspecified; F43.10 Post-traumatic stress disorder, unspecified; Z90.710 Acquired absence of both cervix and uterus; F17.210 Nicotine dependence, cigarettes, uncomplicated
CPT/HCPCS: 99283; A9270

== ENCOUNTER 2022-04-12 18:00 | Emergency (ER) | payer OTHER, SELFPAY ==
--- NOTE | 2022-04-12 18:04 | ED.URI ---
HPI - URI/Sore Throat General Chief Complaint: Upper Respiratory Infection Stated Complaint: Sore Throat/Running Nose Time Seen by Provider: 04/12/22 18:16 Source: patient, RN notes reviewed and old records reviewed Mode of arrival: ambulatory Limitations: no limitations History of Present Illness HPI Narrative: 36-year-old female presents to the [facility] with complaints of a sore throat, sinus congestion for 2 days. Denies fevers. No treatment prior to arrival. Related Data Home Medications Medication Instructions Recorded Confirmed linaclotide 290 mcg capsule 290 mcg PO DAILY 02/21/21 01/24/22 (Linzess) buspirone 10 mg tablet 10 mg PO BID 05/16/21 01/24/22 Allergies Allergy/AdvReac Type Severity Reaction Status Date / Time diphenhydramine Allergy Unknown Hives Verified 03/04/22 17:22 Review of Systems Review of Systems: All systems reviewed & are unremarkable except as noted in HPI and below Constitutional: Constitutional: Reports no additional constitutional complaints Eyes: Eyes: Reports no additional eye complaints ENT: Reports as per HPI Cardiovascular: Cardiovascular: Reports no additional cardiovascular complaints, Denies chest pain and Denies dyspnea Respiratory: Respiratory: Reports no additional respiratory complaints, Denies chest congestion, Denies cough and Denies dyspnea Gastrointestinal: Gastrointestinal: Reports no additional gastrointestinal complaints, Denies abdominal pain, Denies nausea and Denies vomiting Musculoskeletal: Musculoskeletal: Reports no additional musculoskeletal complaints Integumentary/Breasts: Skin/Breast: Reports system reviewed and no additional complaints, except as docu Neurologic: Reports system reviewed and no additional complaints, except as documented Psychiatric: Psychiatric: Reports no additional psychiatric complaints Allergic/Immunologic: Allergic/Immunologic: Reports no additional allergic/immunologic complaints [facility] Past Medical History Medical History Anxiety Depression IBS (irritable bowel syndrome) PTSD (post-traumatic stress disorder) Surgical History Surgical History H/O laparoscopy H/O tubal ligation H/O: hysterectomy Family History Family History Other Alcoholism in family Depression Social History Social History Smoking packs per day: 0.5 Smoking cigarettes per day: 10.0 Smoking status: Current every day smoker Alcohol intake: current Gender identity (if verbalized by the patient): Female Comments At the time of my signature, I reviewed and agree with the nursing past medical, surgical, social, and family history. There is no relevant family history pertinent to the patient complaint. Exam Const: General: cooperative, healthy appearing, comfortable, no acute distress, well developed, alert and well nourished Nutritional Appearance: well nourished Orientation/consciousness: patient oriented x3 Limitations: no limitations HENMT: Head: normal to inspection Ears: hearing grossly normal bilaterally and external ears normal Face/Nose/Sinus: Normal external nose present, Normal nares present, Abnormal mucous membranes and turbinates present boggy; not erythematous, Nasal discharge present clear and normal facial exam Face and sinus: normal facial exam Mouth: Yes Normal oral and palatal mucosa present, Yes lip normal and Yes moist mucous membranes Teeth and gingiva: fair dentition Throat: posterior oropharynx normal, uvula midline, postnasal drainage, tonsils present and no uvular edema Eyes: General: appearance normal, both eyes and all related structures Alignment and Position: alignment normal Periorbital: periorbital findings normal Conjunctivae: conjunctivae normal Pupils: Equal, round and tam
[2022-04-12 18:10] VITALS: BP 98/57; PULSE 116; RESP 16; TEMP 37; O2SAT 100
== END 2022-04-12 18:44 | disposition home or self-care (01) ==
PROVIDERS: Emergency Provider Nurse Practitioner
DX: J06.9 Acute upper respiratory infection, unspecified (principal); F17.210 Nicotine dependence, cigarettes, uncomplicated; F41.9 Anxiety disorder, unspecified; F32.A Depression, unspecified
CPT/HCPCS: 99213; G0463

== ENCOUNTER 2022-07-23 10:11 | Emergency (ER) | payer OTHER, SELFPAY ==
[2022-07-23 10:19] VITALS: BP 97/62; PULSE 104; RESP 20; TEMP 37; O2SAT 99
--- NOTE | 2022-07-23 10:52 | ED.URI ---
HPI - URI/Sore Throat General Chief Complaint: Upper Respiratory Infection Stated Complaint: uri Time Seen by Provider: 07/23/22 10:42 Source: patient Mode of arrival: ambulatory Limitations: no limitations History of Present Illness HPI Narrative: Patient presents today complaining 3 day history of sore throat, congestion, rhinorrhea, postnasal drip, hoarse voice. This reports symptoms worsened today. Currently rates her pain 8/10 and has tried no [id number] treatment prior to arrival. States mother was sick with similar symptoms last weekend. Related Data Home Medications Medication Instructions Recorded Confirmed linaclotide 290 mcg capsule 290 mcg PO DAILY 02/21/21 07/23/22 (Linzess) buspirone 10 mg tablet 10 mg PO BID 05/16/21 07/23/22 Allergies Allergy/AdvReac Type Severity Reaction Status Date / Time diphenhydramine Allergy Unknown Hives Verified 07/23/22 10:14 Review of Systems Review of Systems: CONSTITUTIONAL: Denies body aches, fever, chills, or sweats. EYES: Denies visual changes, redness, or discharge. ENT: Denies otalgia.+ congestion, rhinorrhea, hoarseness, postnasal drip, sore throat CARDIOVASCULAR: Denies chest pain, palpitations, or edema. RESPIRATORY: Denies cough or dyspnea. GASTROINTESTINAL: Denies abdominal pain, nausea, vomiting, or diarrhea. GENITOURINARY: Denies dysuria or hematuria. SKIN: Denies rash, itching, or wounds. MUSCULOSKELETAL: Denies back pain, joint pain, or myalgia. NEUROLOGIC: Denies headache, numbness, tingling, or weakness. PSYCH: Denies depression or anxiety. [facility] Past Medical History Medical History Anxiety Depression IBS (irritable bowel syndrome) PTSD (post-traumatic stress disorder) Surgical History Surgical History H/O laparoscopy H/O tubal ligation H/O: hysterectomy Family History Family History Other Alcoholism in family Depression Social History Social History Smoking packs per day: 0.5 Smoking cigarettes per day: 10.0 Smoking status: Current every day smoker Alcohol intake: current Gender identity (if verbalized by the patient): Female Comments At time of signature, I have reviewed and agree with nursing past medical, surgical, social and family history unless otherwise noted. Please see nursing chart for further information. There is no relevant family history pertinent to the presenting complaint Exam Narrative: GENERAL: Well-appearing, well-nourished, and in no acute distress. HEAD: Normocephalic, atraumatic. EYES: EOMI. No redness or drainage. Conjunctivae normal. ENT: Mucous membranes pink and moist. Nares congested with rhinorrhea. TMs normal bilaterally. Throat mildly erythematous posteriorly with small amount of postnasal drainage. Uvula midline. NECK: Normal AROM. Supple. No lymphadenopathy. CHEST: No respiratory distress. Clear to auscultation. HEART: Regular rate and rhythm. No murmur appreciated. Normal peripheral pulses. EXTREMITIES: Normal range of motion. No edema. SKIN: Warm, dry, no rash. Capillary refill normal. Normal skin turgor. NEURO: No focal deficits. Alert and oriented x3. Gait steady. PSYCH: Normal affect. No signs of depression or anxiety. Course Course Level of Care: Express Care Visit Vital Signs Vital signs: Vital Signs Temperature 98.6 F 07/23/22 10:19 Pulse Rate 104 H 07/23/22 10:19 Respiratory Rate 20 07/23/22 10:19 Blood Pressure 97/62 L 07/23/22 10:19 Pulse Oximetry 99 07/23/22 10:19 Temperature 98.6 F 07/23/22 10:19 Pulse Rate 104 H 07/23/22 10:19 Respiratory Rate 20 07/23/22 10:19 Blood Pressure 97/62 L 07/23/22 10:19 Pulse Oximetry 99 07/23/22 10:19 Reviewed MDM - URI/Sore Throat MDM
== END 2022-07-23 11:00 | disposition home or self-care (01) ==
PROVIDERS: Emergency Provider Nurse Practitioner
DX: J06.9 Acute upper respiratory infection, unspecified (principal); F17.210 Nicotine dependence, cigarettes, uncomplicated; F41.9 Anxiety disorder, unspecified; F32.A Depression, unspecified
CPT/HCPCS: 87081; 87880; 99213; G0463

== ENCOUNTER 2022-10-07 14:59 | Emergency (ER) | payer OTHER, SELFPAY ==
[2022-10-07 15:14] VITALS: BP 95/58; PULSE 85; RESP 14; TEMP 37.2; O2SAT 100
[2022-10-07 15:15] VITALS: BP 95/58; PULSE 85; RESP 14; TEMP 37.2; O2SAT 100
--- NOTE | 2022-10-07 15:31 | ED.WOUNDLAC ---
HPI - Wound/Laceration General Chief Complaint: Wound/Laceration Stated Complaint: cut with glass Time Seen by Provider: 10/07/22 15:18 Source: patient and RN notes reviewed Mode of arrival: ambulatory Limitations: no limitations History of Present Illness HPI narrative: Patient presents today complaining of various cuts on her legs and feet after she dropped a glass shelf from her refrigerator and cut her approximately 1 hour prior to arrival. She applied Band-Aids. Up-to-date on tetanus vaccine Related Data Home Medications Medication Instructions Recorded Confirmed linaclotide 290 mcg capsule 290 mcg PO DAILY 02/21/21 10/07/22 (Linzess) buspirone 10 mg tablet 10 mg PO BID 05/16/21 10/07/22 Allergies Allergy/AdvReac Type Severity Reaction Status Date / Time diphenhydramine Allergy Unknown Hives Verified 10/07/22 15:14 Review of Systems Review of Systems: CONSTITUTIONAL: Denies body aches, fever, chills, or sweats. EYES: Denies visual changes, redness, or discharge. ENT: Denies rhinorrhea, congestion, sore throat, or otalgia. CARDIOVASCULAR: Denies chest pain, palpitations, or edema. RESPIRATORY: Denies cough or dyspnea. GASTROINTESTINAL: Denies abdominal pain, nausea, vomiting, or diarrhea. GENITOURINARY: Denies dysuria or hematuria. SKIN: Denies rash, itching. + cuts on legs and feet MUSCULOSKELETAL: Denies back pain, joint pain, or myalgia. NEUROLOGIC: Denies headache, numbness, tingling, or weakness. PSYCH: Denies depression or anxiety. [facility] Past Medical History Medical History Anxiety Depression IBS (irritable bowel syndrome) PTSD (post-traumatic stress disorder) Surgical History Surgical History H/O laparoscopy H/O tubal ligation H/O: hysterectomy Family History Family History Other Alcoholism in family Depression Social History Social History Smoking packs per day: 0.5 Smoking cigarettes per day: 10.0 Smoking status: Current every day smoker Alcohol intake: current Gender identity (if verbalized by the patient): Female Comments At time of signature, I have reviewed and agree with nursing past medical, surgical, social and family history unless otherwise noted. Please see nursing chart for further information. There is no relevant family history pertinent to the presenting complaint Exam Narrative: GENERAL: Well-appearing, well-nourished, and in no acute distress. HEAD: Normocephalic, atraumatic. EYES: EOMI. No redness or drainage. Conjunctivae normal. ENT: Mucous membranes pink and moist. NECK: Normal AROM. CHEST: No respiratory distress. EXTREMITIES: Normal range of motion. No edema. SKIN: Warm, dry, no rash. Capillary refill normal. Normal skin turgor. 0.5 cm superficial abrasion to the inner right wrist, 0.2 cm superficial abrasion to the dorsum of the right, 0.4 cm linear abrasion to the left anterior lower leg, 0.1 cm superficial linear abrasion between the left 3rd and 4th toe. No active bleeding. No foreign bodies palpated in the wounds. None of these wounds require repair. NEURO: No focal deficits. Alert and oriented x3. Gait steady. PSYCH: Normal affect. No signs of depression or anxiety. Course Course Level of Care: Express Care Visit Vital Signs Vital signs: Vital Signs Temperature 98.9 F 10/07/22 15:14 Pulse Rate 85 10/07/22 15:14 Respiratory Rate 14 10/07/22 15:14 Blood Pressure 95/58 L 10/07/22 15:14 Pulse Oximetry 100 10/07/22 15:14 Oxygen Delivery Room Air 10/07/22 15:14 Temperature 98.9 F 10/07/22 15:15 Pulse Rate 85 10/07/22 15:15 Respiratory Rate 14 10/07/22 15:15 Blood Pressure 95/58 L 10/07/22 15:15 Pulse Oximetry 100 10/07/22 15:15 Oxygen
== END 2022-10-07 15:39 | disposition home or self-care (01) ==
PROVIDERS: Emergency Provider Nurse Practitioner
DX: S60.811A Abrasion of right wrist, initial encounter (principal); S80.812A Abrasion, left lower leg, initial encounter; S60.512A Abrasion of left hand, initial encounter; W25.XXXA Contact with sharp glass, initial encounter; F41.9 Anxiety disorder, unspecified; F32.A Depression, unspecified; F43.10 Post-traumatic stress disorder, unspecified
CPT/HCPCS: 99212; G0463

== ENCOUNTER 2022-11-09 18:04 | Emergency (ER) | payer OTHER, SELFPAY ==
[2022-11-09 18:15] VITALS: BP 96/57; PULSE 132; RESP 16; TEMP 38.1; O2SAT 99
--- NOTE | 2022-11-09 18:38 | ED.URI ---
HPI - URI/Sore Throat General Chief Complaint: Upper Respiratory Infection Stated Complaint: Cough/Sore Throat Source: patient and RN notes reviewed Mode of arrival: ambulatory Limitations: no limitations History of Present Illness HPI Narrative: 36-year-old female presented for complaint of headache, body aches, sinus pressure/congestion, cough, fever/chills. Onset 2-3 days. States she and her tested positive at home for COVID today. Denies sob, wheezing, n/v/d. Taking Tylenol for headache. MD elicited complaint: cough Related Data Home Medications Medication Instructions Recorded Confirmed linaclotide 290 mcg capsule 290 mcg PO DAILY 02/21/21 10/07/22 (Linzess) buspirone 10 mg tablet 10 mg PO BID 05/16/21 10/07/22 Allergies Allergy/AdvReac Type Severity Reaction Status Date / Time diphenhydramine Allergy Unknown Hives Verified 11/09/22 18:17 Review of Systems Review of Systems: CONSTITUTIONAL: Endorses malaise, chills, sweats, fever EYES: Denies visual changes, redness, or discharge ENT: Reports rhinorrhea, congestion, sinus pain, otalgia, sore throat CARDIOVASCULAR: Denies chest pain, palpitations, edema RESPIRATORY: Reports cough, post nasal drainage. Denies dyspnea GASTROINTESTINAL: Denies abdominal pain, nausea, vomiting, diarrhea SKIN: Denies rash or itching MUSCULOSKELETAL: Endorses myalgia NEUROLOGIC: Endorses headache PMFSH Past Medical History Medical History Anxiety Depression IBS (irritable bowel syndrome) PTSD (post-traumatic stress disorder) Surgical History Surgical History H/O laparoscopy H/O tubal ligation H/O: hysterectomy Family History Family History Other Alcoholism in family Depression Social History Social History Smoking packs per day: 0.5 Smoking cigarettes per day: 10.0 Smoking status: Current every day smoker Alcohol intake: current Gender identity (if verbalized by the patient): Female Exam Narrative: GENERAL: Ill-appearing, nontoxic no acute distress. HEAD: Normocephalic EYES: PERRLA, conjunctivae clear ENT: Mucous membranes moist. TMs pearly gomes with dull light reflex bilaterally; no tragal tenderness. Oropharynx erythematous without lesions or exudate, no drooling, no hoarseness, no trismus, uvula midline. NECK: Supple. No lymphadenopathy CHEST: Clear to auscultation, breath sounds equal. No wheezing, rhonchi, rales, or stridor. No respiratory distress, speaks in full sentences. HEART: Regular rate and rhythm. No murmur heard. SKIN: Warm, dry, no rash. NEURO: Alert and oriented x3. PSYCH: Normal mood and affect Course Course Emergency Course: Patient is aware of diagnosis, understands and agrees to treatment plan. Anticipatory guidance given. Patient agrees to follow-up as directed and is aware of reasons to seek care at the emergency department. Portions of this record may have been created with voice recognition software Level of Care: Express Care Visit Vital Signs Vital signs: Vital Signs Temperature 100.5 F H 11/09/22 18:15 Pulse Rate 132 H 11/09/22 18:15 Respiratory Rate 16 11/09/22 18:15 Blood Pressure 96/57 L 11/09/22 18:15 Pulse Oximetry 99 11/09/22 18:15 Oxygen Delivery Room Air 11/09/22 18:15 Temperature 100.5 F H 11/09/22 18:15 Pulse Rate 132 H 11/09/22 18:15 Respiratory Rate 16 11/09/22 18:15 Blood Pressure 96/57 L 11/09/22 18:15 Pulse Oximetry 99 11/09/22 18:15 Oxygen Delivery Room Air 11/09/22 18:15 reviewed MDM - URI/Sore Throat MDM Narrative Medical decision making narrative: Discussed physical exam findings, she is advised her home positive covid test and symptoms are sufficient for quarantine. Advised supportive measures a
== END 2022-11-09 18:56 | disposition home or self-care (01) ==
PROVIDERS: Emergency Provider Nurse Practitioner Family
DX: U07.1 COVID-19 (principal); F17.210 Nicotine dependence, cigarettes, uncomplicated; F41.9 Anxiety disorder, unspecified; F32.A Depression, unspecified
CPT/HCPCS: 99211; G0463

== ENCOUNTER 2023-03-21 10:11 | Emergency (ER) | payer OTHER, SELFPAY ==
[2023-03-21 10:32] VITALS: BP 87/62; PULSE 100; RESP 16; TEMP 37.1; O2SAT 99
--- NOTE | 2023-03-21 10:57 | ED.URI ---
HPI - URI/Sore Throat General Chief Complaint: Upper Respiratory Infection Stated Complaint: stuffy nose,cough Time Seen by Provider: 03/21/23 11:05 Source: patient and RN notes reviewed Mode of arrival: ambulatory Limitations: no limitations History of Present Illness HPI Narrative: 37-year-old female presents concern for cough, nasal congestion and drainage, sore throat that started 1 week ago. Reports she has been taking cold medicine without relief. She reports low-grade temperature. MD elicited complaint: sore throat and nasal congestion Related Data Home Medications Medication Instructions Recorded Confirmed linaclotide 290 mcg capsule 290 mcg PO DAILY 02/21/21 10/07/22 (Linzess) buspirone 10 mg tablet 10 mg PO BID 05/16/21 10/07/22 Allergies Allergy/AdvReac Type Severity Reaction Status Date / Time diphenhydramine Allergy Unknown Hives Verified 03/21/23 10:49 Review of Systems Review of Systems: CONSTITUTIONAL: Denies malaise, chills, sweats, or fever. EYES: Denies visual changes, redness, or discharge. ENT: Reports rhinorrhea, congestion, sinus pain, and sore throat. CARDIOVASCULAR: Denies chest pain, palpitations, or edema. RESPIRATORY: Reports cough. Denies dyspnea. GASTROINTESTINAL: Denies abdominal pain, nausea, vomiting, diarrhea SKIN: Denies rash or itching. MUSCULOSKELETAL: Denies myalgia. NEUROLOGIC: Denies headache. All systems reviewed & are unremarkable except as noted in HPI and below PMFSH Past Medical History Medical History Anxiety Depression IBS (irritable bowel syndrome) PTSD (post-traumatic stress disorder) Surgical History Surgical History H/O laparoscopy H/O tubal ligation H/O: hysterectomy Family History Family History Other Alcoholism in family Depression Social History Social History Smoking packs per day: 0.5 Smoking cigarettes per day: 10.0 Smoking status: Current every day smoker Alcohol intake: current Gender identity (if verbalized by the patient): Female Comments At time of signature, agree with nursing past medical, surgical, social and family history. There is no relevant family history pertinent to the presenting complaint Exam Narrative: GENERAL: Nontoxic-appearing, well-nourished, and in no acute distress. HEAD: Normocephalic EYES: PERRLA, conjunctivae clear ENT: Nares clear, turbinates edematous and erythematous. Mucous membranes moist. TM pearly gomes with dull light reflex bilaterally; no tragal tenderness. Oropharynx not erythematous without lesions. Tonsils not enlarged and without exudate, no drooling, no hoarseness, no trismus, uvula midline. NECK: Supple. No lymphadenopathy CHEST: Clear to auscultation, breath sounds equal. No wheezing, rhonchi, rales, or stridor. No respiratory distress, speaks in full sentences. Cough noted HEART: Regular rate and rhythm. No murmur heard. SKIN: Warm, dry, no rash. NEURO: Alert and oriented x3. PSYCH: Normal mood and affect Course Course Emergency Course: Patient is aware of diagnosis, understands and agrees to treatment plan. Anticipatory guidance given. Patient agrees to follow-up as directed and is aware of reasons to seek care at the emergency department. Portions of this record may have been created with voice recognition software Level of Care: Express Care Visit Vital Signs Vital signs: Vital Signs Temperature 98.8 F 03/21/23 10:32 Pulse Rate 100 03/21/23 10:32 Respiratory Rate 16 03/21/23 10:32 Blood Pressure 87/62 L 03/21/23 10:32 Pulse Oximetry 99 03/21/23 10:32 Oxygen Delivery Room Air 03/21/23 10:32 Temperature 98.8 F 03/21/23 10:32 Pulse Rate 100 03/21/23 10:32 Respiratory Rate 16 03/21/23 10:32 Blood Pressur
== END 2023-03-21 11:24 | disposition home or self-care (01) ==
PROVIDERS: Emergency Provider Nurse Practitioner; PCP Nurse Practitioner
DX: J32.9 Chronic sinusitis, unspecified (principal); F17.210 Nicotine dependence, cigarettes, uncomplicated; F41.9 Anxiety disorder, unspecified; F32.A Depression, unspecified
CPT/HCPCS: 99213; G0463

== ENCOUNTER 2023-05-28 15:22 | Emergency (ER) | payer OTHER, SELFPAY ==
[2023-05-28 15:33] VITALS: BP 109/61; PULSE 105; RESP 16; TEMP 37.2; O2SAT 100
--- NOTE | 2023-05-28 16:28 | ED.FEMALEGU ---
HPI - Female Genitourinary General Chief complaint: Urogenital-Female Stated complaint: urinary issue Time Seen by Provider: 05/28/23 16:22 Source: patient and RN notes reviewed Mode of arrival: ambulatory Limitations: no limitations History of Present Illness HPI Narrative: 37-year-old female presents concern for one-week history of urinary frequency, burning, dysuria. She reports she took azo in the 1st few days of her symptoms but has not taken in several days. She denies fever, body aches, chills, sweats, back pain, nausea, vomiting. Reports suprapubic pressure. MD elicited complaint: UTI Related Data Home Medications Medication Instructions Recorded Confirmed linaclotide 290 mcg capsule 290 mcg PO DAILY 02/21/21 10/07/22 (Linzess) buspirone 10 mg tablet 10 mg PO BID 05/16/21 10/07/22 Allergies Allergy/AdvReac Type Severity Reaction Status Date / Time diphenhydramine Allergy Unknown Hives Verified 05/28/23 15:46 Review of Systems Review of Systems: CONSTITUTIONAL: Denies malaise, chills, sweats, or fever. CARDIOVASCULAR: Denies chest pain, palpitations, or edema. RESPIRATORY: Denies cough or dyspnea. GASTROINTESTINAL: Denies abdominal pain, nausea, vomiting, diarrhea GENITOURINARY: Reports dysuria, frequency, urgency, suprapubic pressure. Denies flank pain or hematuria. SKIN: Denies rash or itching. MUSCULOSKELETAL: Denies back pain or myalgia. All systems reviewed & are unremarkable except as noted in HPI and below PMFSH Past Medical History Medical History Anxiety Depression IBS (irritable bowel syndrome) PTSD (post-traumatic stress disorder) Surgical History Surgical History H/O laparoscopy H/O tubal ligation H/O: hysterectomy Family History Family History Other Alcoholism in family Depression Social History Social History Smoking packs per day: 0.5 Smoking cigarettes per day: 10.0 Smoking status: Current every day smoker Alcohol intake: current Gender identity (if verbalized by the patient): Female Comments At time of signature, agree with nursing past medical, surgical, social and family history. There is no relevant family history pertinent to the presenting complaint Exam Narrative: GENERAL: Well-appearing, well-nourished, and in no acute distress. HEAD: Normocephalic. EYES: PERRLA, conjunctivae clear. NECK: Supple. No lymphadenopathy CHEST: Clear to auscultation. No respiratory distress. HEART: Regular rate and rhythm. ABDOMEN: Soft, nontender upon palpation, nondistended, normal active bowel sounds, no palpable or pulsatile masses, no guarding. No CVA tenderness SKIN: Warm, dry, no rash. NEURO: Alert and oriented x3. PSYCH: Normal mood and affect Course Course Emergency Course: Patient is aware of diagnosis, understands and agrees to treatment plan. Anticipatory guidance given. Patient agrees to follow-up as directed and is aware of reasons to seek care at the emergency department. Portions of this record may have been created with voice recognition software Level of Care: Express Care Visit Vital Signs Vital signs: Vital Signs Temperature 99 F 05/28/23 15:33 Pulse Rate 105 H 05/28/23 15:33 Respiratory Rate 16 05/28/23 15:33 Blood Pressure 109/61 05/28/23 15:33 Pulse Oximetry 100 05/28/23 15:33 Oxygen Delivery Room Air 05/28/23 15:33 Temperature 99 F 05/28/23 15:33 Pulse Rate 105 H 05/28/23 15:33 Respiratory Rate 16 05/28/23 15:33 Blood Pressure 109/61 05/28/23 15:33 Pulse Oximetry 100 05/28/23 15:33 Oxygen Delivery Room Air 05/28/23 15:50 Reviewed. MDM - Female Genitourinary MDM Narrative Medical decision making narrative: Exam findings and UA show no acute concer
== END 2023-05-28 16:38 | disposition home or self-care (01) ==
PROVIDERS: Emergency Provider Nurse Practitioner
DX: N39.0 Urinary tract infection, site not specified (principal); B96.20 Unspecified Escherichia coli [E. coli] as the cause of diseases classified elsewhere; F41.9 Anxiety disorder, unspecified; F32.A Depression, unspecified; F17.210 Nicotine dependence, cigarettes, uncomplicated
CPT/HCPCS: 81003; 87077; 87086; 87186; 99213; G0463

== ENCOUNTER 2023-06-06 10:58 | Emergency (ER) | payer OTHER, SELFPAY ==
[2023-06-06 11:22] VITALS: BP 100/58; PULSE 125; RESP 16; TEMP 37.1; O2SAT 100
--- NOTE | 2023-06-06 12:42 | ED.URI ---
HPI - URI/Sore Throat General Chief Complaint: Upper Respiratory Infection Stated Complaint: Sinus Time Seen by Provider: 06/06/23 12:42 Source: patient Mode of arrival: ambulatory Limitations: no limitations History of Present Illness HPI Narrative: 37-year-old female presents with complaint of sore throat, fatigue, body aches, chills, nasal congestion for 2 days. Afebrile. Exposed to influenza by several family members. No chest pain or shortness of breath. Denies nausea vomiting diarrhea. All systems reviewed and negative except as noted above. Related Data Home Medications Medication Instructions Recorded Confirmed linaclotide 290 mcg capsule 290 mcg PO DAILY 02/21/21 06/06/23 (Linzess) buspirone 10 mg tablet 10 mg PO BID 05/16/21 06/06/23 Allergies Allergy/AdvReac Type Severity Reaction Status Date / Time diphenhydramine Allergy Unknown Hives Verified 06/06/23 11:36 clavulanic acid AdvReac Intermediate Vomiting Verified 06/06/23 11:36 Review of Systems Review of Systems: CONSTITUTIONAL: Denies fever, chills, or sweats. reports fatigue. EYES: Denies visual changes, redness, or discharge. ENT: Reports rhinorrhea, congestion, sore throat. Denies otalgia. CARDIOVASCULAR: Denies chest pain, palpitations, or edema. RESPIRATORY: Denies cough or dyspnea. GASTROINTESTINAL: Denies abdominal pain, nausea, vomiting, or diarrhea. GENITOURINARY: Denies dysuria or hematuria. SKIN: Denies rash or itching. MUSCULOSKELETAL: Denies back pain, joint pain, or myalgia. NEUROLOGIC: Denies headache, numbness, or weakness. PSYCHIATRIC: Denies anxiety or depression. All other systems reviewed are negative, except as documented in HPI. [facility] Past Medical History Medical History Anxiety Depression IBS (irritable bowel syndrome) PTSD (post-traumatic stress disorder) Surgical History Surgical History H/O laparoscopy H/O tubal ligation H/O: hysterectomy Family History Family History Other Alcoholism in family Depression Social History Social History Smoking packs per day: 0.5 Smoking cigarettes per day: 10.0 Smoking status: Current every day smoker Alcohol intake: current Gender identity (if verbalized by the patient): Female Comments At time of signature, agree with nursing past medical, surgical, social and family history. There is no relevant family history pertinent to the presenting complaint. Exam Narrative: GENERAL: This is a well-nourished, well-developed patient, Patient ill-appearing but no acute distress. HEAD: normocephalic, atraumatic. EYES: PERRL. Sclera clear/white. Vision is grossly intact. EARS: External ears normal, auditory canals clear and without drainage, TMs normal without perforation. Hearing grossly intact. NOSE: External nose normal with Mild nasal congestion. THROAT: Mucous membranes moist, Erythema. No swelling or exudates. NECK: Neck supple, non-tender without lymphadenopathy, masses or thyromegaly. CARDIOVASCULAR: Regular rate and rhythm without murmurs, gallops, or rubs. RESPIRATORY: Clear to auscultation. Breath sounds equal bilaterally. No wheezes, rales, or rhonchi. SKIN: warm, Dry, intact with no suspicious lesions or rash, good texture and turgor. NEURO: awake, alert, and oriented to person, place and time. There were no obvious focal neurologic abnormalities. EXTREMITIES: No joint tenderness, effusion, or edema noted. Course Course Level of Care: Express Care Visit Vital Signs Vital signs: Vital Signs Oxygen Delivery Room Air 06/06/23 11:20 Temperature 37.1 C 06/06/23 11:22 Pulse Rate 125 H 06/06/23 11:22 Respiratory Rate 16 06/06/23 11:22 Blood Pressure 100/58 L 06/06/23 11:22 Pulse Oxime
== END 2023-06-06 12:55 | disposition home or self-care (01) ==
PROVIDERS: Emergency Provider Nurse Practitioner Family
DX: J10.1 Influenza due to other identified influenza virus with other respiratory manifestations (principal); F17.210 Nicotine dependence, cigarettes, uncomplicated; F41.9 Anxiety disorder, unspecified; F32.A Depression, unspecified
CPT/HCPCS: 87804; 99213; G0463

== ENCOUNTER 2023-07-09 19:37 | Emergency (ER) | payer OTHER, SELFPAY ==
--- NOTE | 2023-07-09 19:42 | ED.FEMALEGU ---
HPI - Female Genitourinary General Chief complaint: Urogenital-Female Stated complaint: Sinus Source: patient and RN notes reviewed Mode of arrival: ambulatory Limitations: no limitations History of Present Illness HPI Narrative: 37 y/o female presented for std testing and to check for UTI. States she was notified by her he is in the ER being treated for STDs after reporting swollen, painful testes. Denies vaginal discharge, hematuria, nausea, vomiting, abdominal pain, flank pain, constipation, diarrhea, fevers or chills. Related Data Home Medications Medication Instructions Recorded Confirmed linaclotide 290 mcg capsule 290 mcg PO DAILY 02/21/21 07/09/23 (Linzess) buspirone 10 mg tablet 10 mg PO BID 05/16/21 07/09/23 Allergies Allergy/AdvReac Type Severity Reaction Status Date / Time diphenhydramine Allergy Unknown Hives Verified 07/09/23 19:50 clavulanic acid AdvReac Intermediate Vomiting Verified 07/09/23 19:50 Review of Systems Review of Systems: CONSTITUTIONAL: Denies body aches, fever, chills, or sweats. CARDIOVASCULAR: Denies chest pain, palpitations, or edema. RESPIRATORY: Denies cough or dyspnea. GASTROINTESTINAL: Denies abdominal pain, nausea, vomiting, or diarrhea. GENITOURINARY: Denies dysuria, frequency, urgency, hematuria, flank pain SKIN: Denies rash, itching, or wounds. MUSCULOSKELETAL: Denies back pain or myalgia. [facility] Past Medical History Medical History Anxiety Depression IBS (irritable bowel syndrome) PTSD (post-traumatic stress disorder) Surgical History Surgical History H/O laparoscopy H/O tubal ligation H/O: hysterectomy Family History Family History Other Alcoholism in family Depression Social History Social History Smoking packs per day: 0.5 Smoking cigarettes per day: 10.0 Smoking status: Current every day smoker Alcohol intake: current Gender identity (if verbalized by the patient): Female Comments At time of signature, I have reviewed and agree with nursing past medical, surgical, social and family history unless otherwise noted. Please see nursing chart for further information. There is no relevant family history pertinent to the presenting complaint Exam Narrative: GENERAL: Well-appearing ENT: Mucous membranes pink and moist. NECK: Normal AROM. Supple. CHEST: No respiratory distress. Clear to auscultation. HEART: Regular rate and rhythm. ABDOMEN: Soft, nontender, nondistended, normal active bowel sounds. No CVA tenderness SKIN: Warm, dry, no rash. NEURO: No focal deficits. Alert and oriented x3. Gait steady. PSYCH: Normal affect. Course Course Emergency Course: Patient is aware of diagnosis, understands and agrees to treatment plan. Anticipatory guidance given. Patient agrees to follow-up as directed and is aware of reasons to seek care at the emergency department. Portions of this record may have been created with voice recognition software Level of Care: Express Care Visit Vital Signs Vital signs: Vital Signs Temperature 98.9 F 07/09/23 19:48 Pulse Rate 124 H 07/09/23 19:48 Respiratory Rate 16 07/09/23 19:48 Blood Pressure 112/72 07/09/23 19:48 Pulse Oximetry 100 07/09/23 19:48 Oxygen Delivery Room Air 07/09/23 19:48 Temperature 98.9 F 07/09/23 19:48 Pulse Rate 124 H 07/09/23 19:48 Respiratory Rate 16 07/09/23 19:48 Blood Pressure 112/72 07/09/23 19:48 Pulse Oximetry 100 07/09/23 19:48 Oxygen Delivery Room Air 07/09/23 19:48 Reviewed MDM - Female Genitourinary MDM Narrative Medical decision making narrative: Urine culture sent, will treat accordingly. Patient presenting with concern for STD. Urine specimen collected for GC, chlamydia,
[2023-07-09 19:48] VITALS: BP 112/72; PULSE 124; RESP 16; TEMP 37.2; O2SAT 100
[2023-07-10 18:07] LABS: Trichomonas Vag PCR NOT DETECTED (NOT DETECTE)
[2023-07-10 18:30] LABS: Chlamydia trachomatis NOT DETECTED (NOT DETECTE); Neisseria gonorrhoeae PCR NOT DETECTED (NOT DETECTE)
== END 2023-07-09 20:08 | disposition home or self-care (01) ==
PROVIDERS: Emergency Provider Nurse Practitioner Family
DX: Z20.2 Contact with and (suspected) exposure to infections with a predominantly sexual mode of transmission (principal); F17.210 Nicotine dependence, cigarettes, uncomplicated; F41.9 Anxiety disorder, unspecified; F32.A Depression, unspecified
CPT/HCPCS: 81003; 87086; 87491; 87591; 87661; 99214; G0463

== ENCOUNTER 2023-08-01 17:29 | Emergency (ER) | payer OTHER, SELFPAY ==
--- NOTE | 2023-08-01 17:35 | ED.URI ---
HPI - URI/Sore Throat General Chief Complaint: Upper Respiratory Infection Stated Complaint: Sore Throat Time Seen by Provider: 08/01/23 18:01 Source: patient, RN notes reviewed and old records reviewed Mode of arrival: ambulatory Limitations: no limitations History of Present Illness HPI Narrative: 37-year-old female presents to the [facility] with complaints of a sore throat, runny nose, congestion since last night. Reports that she is trying some honey tea and has taken some throat lozenges. Onset (ago): day(s) (1) Related Data Home Medications Medication Instructions Recorded Confirmed linaclotide 290 mcg capsule 290 mcg PO DAILY 02/21/21 08/01/23 (Linzess) buspirone 10 mg tablet 10 mg PO BID 05/16/21 08/01/23 Allergies Allergy/AdvReac Type Severity Reaction Status Date / Time diphenhydramine Allergy Unknown Hives Verified 07/09/23 19:50 clavulanic acid AdvReac Intermediate Vomiting Verified 07/09/23 19:50 Review of Systems Review of Systems: All systems reviewed & are unremarkable except as noted in HPI and below Constitutional: Constitutional: Reports no additional constitutional complaints Eyes: Eyes: Reports no additional eye complaints ENT: Reports as per HPI and Reports sore throat Cardiovascular: Cardiovascular: Reports no additional cardiovascular complaints, Denies chest pain and Denies dyspnea Respiratory: Respiratory: Reports no additional respiratory complaints, Denies chest congestion, Denies cough and Denies dyspnea Gastrointestinal: Gastrointestinal: Reports no additional gastrointestinal complaints, Denies abdominal pain, Denies nausea and Denies vomiting Musculoskeletal: Musculoskeletal: Reports no additional musculoskeletal complaints Integumentary/Breasts: Skin/Breast: Reports system reviewed and no additional complaints, except as docu Neurologic: Reports system reviewed and no additional complaints, except as documented Psychiatric: Psychiatric: Reports no additional psychiatric complaints Allergic/Immunologic: Allergic/Immunologic: Reports no additional allergic/immunologic complaints PMFSH Past Medical History Medical History Anxiety Depression IBS (irritable bowel syndrome) PTSD (post-traumatic stress disorder) Surgical History Surgical History H/O laparoscopy H/O tubal ligation H/O: hysterectomy Family History Family History Other Alcoholism in family Depression Social History Social History Smoking packs per day: 0.5 Smoking cigarettes per day: 10.0 Smoking status: Current every day smoker Alcohol intake: current Gender identity (if verbalized by the patient): Female Comments At the time of my signature, I reviewed and agree with the nursing past medical, surgical, social, and family history. There is no relevant family history pertinent to the patient complaint. Exam Const: General: cooperative, healthy appearing, comfortable, no acute distress, well developed, alert and well nourished Nutritional Appearance: well nourished Orientation/consciousness: patient oriented x3 Limitations: no limitations HENMT: Head: normal to inspection Ears: hearing grossly normal bilaterally, external ears normal, TM normal on the right and TM abnormal wth effusion serous on the left; not erythematous Face/Nose/Sinus: Normal external nose present, Normal nares present, Normal nasal mucous membranes and turbinates present, normal facial exam and face symmetric Face and sinus: normal facial exam and face symmetric Mouth: Yes Normal oral and palatal mucosa present, Yes lip normal and Yes moist mucous membranes Throat: posterior oropharynx normal, tonsils normal, uvula midline, postnasal drainage and no uvular edema Eyes: General: appearance normal,
[2023-08-01 17:45] VITALS: BP 89/64; PULSE 110; RESP 16; TEMP 36.9; O2SAT 100
== END 2023-08-01 18:20 | disposition home or self-care (01) ==
PROVIDERS: Emergency Provider Nurse Practitioner
DX: R09.82 Postnasal drip (principal); H65.02 Acute serous otitis media, left ear; F17.210 Nicotine dependence, cigarettes, uncomplicated; F41.9 Anxiety disorder, unspecified; F32.A Depression, unspecified
CPT/HCPCS: 87081; 87880; 99213; G0463

== ENCOUNTER 2023-08-04 10:40 | Emergency (ER) | payer OTHER, SELFPAY ==
--- NOTE | 2023-08-04 10:48 | ED.URI ---
HPI - URI/Sore Throat General Chief Complaint: Upper Respiratory Infection Stated Complaint: stuffy nose,nasal discharge,cough,left ear issue Time Seen by Provider: 08/04/23 11:34 Source: patient and RN notes reviewed Mode of arrival: ambulatory Limitations: no limitations History of Present Illness HPI Narrative: 37-year-old female presents with concern for 4 day history of nasal congestion, rhinorrhea, cough, left ear pain. Reports she has been taking antihistamines and Flonase without relief. Reports a green and yellow snot, productive cough MD elicited complaint: cough and nasal congestion Related Data Home Medications Medication Instructions Recorded Confirmed linaclotide 290 mcg capsule 290 mcg PO DAILY 02/21/21 08/04/23 (Linzess) buspirone 10 mg tablet 10 mg PO BID 05/16/21 08/04/23 Allergies Allergy/AdvReac Type Severity Reaction Status Date / Time diphenhydramine Allergy Unknown Hives Verified 08/04/23 11:01 clavulanic acid AdvReac Intermediate Vomiting Verified 08/04/23 11:01 Review of Systems Review of Systems: CONSTITUTIONAL: Reports malaise. Denies chills, sweats, or fever. EYES: Denies visual changes, redness, or discharge. ENT: Reports rhinorrhea, congestion, sinus pain, otalgia CARDIOVASCULAR: Denies chest pain, palpitations, or edema. RESPIRATORY: Reports productive cough. Denies dyspnea. GASTROINTESTINAL: Denies abdominal pain, nausea, vomiting, diarrhea SKIN: Denies rash or itching. MUSCULOSKELETAL: Denies myalgia. NEUROLOGIC: Denies headache. All systems reviewed & are unremarkable except as noted in HPI and below PMFSH Past Medical History Medical History Anxiety Depression IBS (irritable bowel syndrome) PTSD (post-traumatic stress disorder) Surgical History Surgical History H/O laparoscopy H/O tubal ligation H/O: hysterectomy Family History Family History Other Alcoholism in family Depression Social History Social History Smoking packs per day: 0.5 Smoking cigarettes per day: 10.0 Smoking status: Current every day smoker Alcohol intake: current Gender identity (if verbalized by the patient): Female Comments At time of signature, agree with nursing past medical, surgical, social and family history. There is no relevant family history pertinent to the presenting complaint Exam Narrative: GENERAL: Well-appearing, well-nourished, and in no acute distress. HEAD: Normocephalic EYES: PERRLA, conjunctivae clear ENT: Nares clear, turbinates edematous and erythematous. Mucous membranes moist. TM pearly gomes with dull light reflex on the left, sharp on the right; no tragal tenderness. Oropharynx not erythematous without lesions. Tonsils not enlarged and without exudate, no drooling, no hoarseness, no trismus, uvula midline. NECK: Supple. No lymphadenopathy CHEST: Clear to auscultation, breath sounds equal. No wheezing, rhonchi, rales, or stridor. No respiratory distress, speaks in full sentences. HEART: Regular rate and rhythm. No murmur heard. SKIN: Warm, dry, no rash. NEURO: Alert and oriented x3. PSYCH: Normal mood and affect Course Course Emergency Course: Patient is aware of diagnosis, understands and agrees to treatment plan. Anticipatory guidance given. Patient agrees to follow-up as directed and is aware of reasons to seek care at the emergency department. Portions of this record may have been created with voice recognition software Level of Care: Express Care Visit Vital Signs Vital signs: Reviewed. MDM - URI/Sore Throat MDM Narrative Medical decision making narrative: Differential diagnosis considered: Cabrera virus, strep pharyngitis, allergic rhinitis, upper respiratory tract infection, sinusitis, rhinosinusitis, nasopharyn
== END 2023-08-04 11:43 | disposition home or self-care (01) ==
PROVIDERS: Emergency Provider Nurse Practitioner
DX: J32.9 Chronic sinusitis, unspecified (principal); J40 Bronchitis, not specified as acute or chronic; F17.210 Nicotine dependence, cigarettes, uncomplicated; F41.9 Anxiety disorder, unspecified; F32.A Depression, unspecified
CPT/HCPCS: 99213; G0463

== ENCOUNTER 2023-10-02 11:56 | Emergency (ER) | payer OTHER, SELFPAY ==
--- NOTE | ~2023-10-02 | XR_ITS ---
EXAMINATION: XR toe 1st RT min 2V DATE: 10/02/2023 12:51 INDICATION: Right great toe pain TECHNIQUE: Dorsal plantar, lateral and 2 oblique views of the right great toe were obtained. COMPARISON: None FINDINGS: Alignment is normal. No fracture. 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 No cortical erosions or periosteal reaction. Soft tissues are unremarkable. IMPRESSION: No acute osseous abnormality. Reviewed, dictated and finalized at location A.
[2023-10-02 12:15] VITALS: BP 100/58; PULSE 90; RESP 16; TEMP 37.3; O2SAT 100
--- NOTE | 2023-10-02 12:30 | ED.LOWEXIN ---
HPI - Extremity Injury (Lower) General Chief Complaint: Extremity Injury, Lower Stated Complaint: Rt Big Toe Pain and Swelling Time Seen by Provider: 10/02/23 12:30 Source: patient Mode of arrival: ambulatory Limitations: no limitations History of Present Illness HPI Narrative: 37-year-old female states she was in her basement looking for a pair crutches for her child and the leads of a wooden table fell on top of right great toe. Injury happened today. Swelling and bruising noted. Range of motion And distal neurovascularly intact. All systems reviewed and negative except as noted above. Related Data Home Medications Medication Instructions Recorded Confirmed linaclotide 290 mcg capsule 290 mcg PO DAILY 02/21/21 10/02/23 (Linzess) buspirone 10 mg tablet 10 mg PO BID 05/16/21 10/02/23 Allergies Allergy/AdvReac Type Severity Reaction Status Date / Time diphenhydramine Allergy Unknown Hives Verified 10/02/23 12:07 clavulanic acid AdvReac Intermediate Vomiting Verified 10/02/23 12:07 Review of Systems Review of Systems: CONSTITUTIONAL: Denies fever, chills, or sweats. EYES: Denies visual changes, redness, or discharge. ENT: Denies rhinorrhea, congestion, sore throat, or otalgia. CARDIOVASCULAR: Denies chest pain, palpitations, or edema. RESPIRATORY: Denies cough or dyspnea. GASTROINTESTINAL: Denies abdominal pain, nausea, vomiting, or diarrhea. GENITOURINARY: Denies dysuria or hematuria. SKIN: Denies rash or itching. MUSCULOSKELETAL: Denies back pain, joint pain, or myalgia. Reports pain and swelling to right great toe. NEUROLOGIC: Denies headache, numbness, or weakness. PSYCHIATRIC: Denies anxiety or depression. All other systems reviewed are negative, except as documented in HPI. [facility] Past Medical History Medical History Anxiety Depression IBS (irritable bowel syndrome) PTSD (post-traumatic stress disorder) Surgical History Surgical History H/O laparoscopy H/O tubal ligation H/O: hysterectomy Family History Family History Other Alcoholism in family Depression Social History Social History Smoking packs per day: 0.5 Smoking cigarettes per day: 10.0 Smoking status: Current every day smoker Alcohol intake: current Gender identity (if verbalized by the patient): Female Comments At time of signature, agree with nursing past medical, surgical, social and family history. There is no relevant family history pertinent to the presenting complaint. Exam Narrative: GENERAL: This is a well-nourished, well-developed patient, in no apparent distress. HEAD: normocephalic, atraumatic. EYES: PERRL. Sclera clear/white. Vision is grossly intact. EARS: External ears normal NOSE: External nose normal NECK: Neck supple, non-tender without lymphadenopathy, masses or thyromegaly. CARDIOVASCULAR: Regular rate and rhythm without murmurs, gallops, or rubs. RESPIRATORY: Clear to auscultation. Breath sounds equal bilaterally. No wheezes, rales, or rhonchi. SKIN: warm, Dry, intact with no suspicious lesions or rash, good texture and turgor. NEURO: awake, alert, and oriented to person, place and time. There were no obvious focal neurologic abnormalities. EXTREMITIES: Mild swelling to dorsal aspect right great toe with bruise. No deformity. Range of motion and distal neurovascularly intact. Course Course Level of Care: Express Care Visit Vital Signs Vital signs: Vital Signs Temperature 37.3 C 10/02/23 12:15 Pulse Rate 90 10/02/23 12:15 Respiratory Rate 16 10/02/23 12:15 Blood Pressure 100/58 L 10/02/23 12:15 Pulse Oximetry 100 10/02/23 12:15 Oxygen Delivery Room Air 10/02/23 12:15 Temperature 37.3 C 10/02/23 12:15 Pulse Rate 90
== END 2023-10-02 13:25 | disposition home or self-care (01) ==
PROVIDERS: Emergency Provider Nurse Practitioner Family
DX: S90.111A Contusion of right great toe without damage to nail, initial encounter (principal); W20.8XXA Other cause of strike by thrown, projected or falling object, initial encounter; F17.210 Nicotine dependence, cigarettes, uncomplicated; F41.9 Anxiety disorder, unspecified; F32.A Depression, unspecified
CPT/HCPCS: 73660; 99213; G0463

== ENCOUNTER 2023-11-30 16:07 | Emergency (ER) | payer OTHER, SELFPAY ==
[2023-11-30 16:14] VITALS: BP 107/61; PULSE 81; RESP 18; TEMP 37.2; O2SAT 100
--- NOTE | 2023-11-30 16:33 | ED.WOUNDLAC ---
HPI - Wound/Laceration General Chief Complaint: Wound/Laceration Stated Complaint: Left Foot Burn Time Seen by Provider: 11/30/23 16:33 Source: patient, RN notes reviewed and old records reviewed Mode of arrival: ambulatory Limitations: no limitations History of Present Illness HPI narrative: Patient presents with complaints of superficial burn to the left foot. She reports that she had grease splatter on the foot last night while cooking. This happened at approximately 8:00 a.m.. She has been applying aloe-liborio to the affected site without much relief. There are no blisters, there is some redness. She denies other injury and trauma. Voices no other concerns or complaints today. Related Data Home Medications Medication Instructions Recorded Confirmed linaclotide 290 mcg capsule 290 mcg PO DAILY 02/21/21 11/30/23 (Linzess) buspirone 10 mg tablet 10 mg PO BID 05/16/21 11/30/23 Allergies Allergy/AdvReac Type Severity Reaction Status Date / Time diphenhydramine Allergy Unknown Hives Verified 11/30/23 16:10 clavulanic acid AdvReac Intermediate Vomiting Verified 11/30/23 16:10 Review of Systems Review of Systems: All systems reviewed & are unremarkable except as noted in HPI and below Constitutional: Constitutional: Reports no additional constitutional complaints ENT: Reports system reviewed and no additional complaints, except as documented Cardiovascular: Cardiovascular: Reports no additional cardiovascular complaints Respiratory: Respiratory: Reports no additional respiratory complaints Gastrointestinal: Gastrointestinal: Reports no additional gastrointestinal complaints Integumentary/Breasts: Skin/Breast: Reports system reviewed and no additional complaints, except as docu and Reports as per HPI [facility] Past Medical History Medical History Anxiety Depression IBS (irritable bowel syndrome) PTSD (post-traumatic stress disorder) Surgical History Surgical History H/O laparoscopy H/O tubal ligation H/O: hysterectomy Family History Family History Other Alcoholism in family Depression Social History Social History Smoking packs per day: 0.5 Smoking cigarettes per day: 10.0 Smoking status: Current every day smoker Alcohol intake: current Gender identity (if verbalized by the patient): Female Exam Const: General: cooperative, no acute distress, alert and awake Orientation/consciousness: oriented to person, oriented to place and oriented to time HENMT: Head: normal to inspection Resp: Effort & Inspection: normal respiratory effort and able to speak in complete sentences Auscultation: clear to auscultation bilaterally, no crackles, no rales, no rhonchi and no wheezes Cardio: Palpation: normal PMI Rate: regular rate Rhythm: regular rhythm Heart sounds: S1 normal heart sound present and S2 normal heart sound present Skin: Other: Left dorsal foot with 2 x 2 area of erythema, tender to touch. No blistering Neuro: General: oriented to person, oriented to place and oriented to time Cranial nerves: Yes CN's II-XII intact bilaterally Psych: Appearance: grossly normal Thought process: Normal thought process present Insight: Good insight present (Psych) Judgement: Good judgement present (Psych) Course Course Level of Care: Express Care Visit Vital Signs Vital signs: Vital Signs Temperature 98.9 F 11/30/23 16:14 Pulse Rate 81 11/30/23 16:14 Respiratory Rate 18 11/30/23 16:14 Blood Pressure 107/61 11/30/23 16:14 Pulse Oximetry 100 11/30/23 16:14 Oxygen Delivery Room Air 11/30/23 16:14 Temperature 98.9 F 11/30/23 16:14 Pulse Rate 81 11/30/23 16:14 Respiratory Rate 18 11/30/23 16:14 Blood Pressure 107/61 11/30/23 16:14
== END 2023-11-30 16:45 | disposition home or self-care (01) ==
PROVIDERS: Emergency Provider Nurse Practitioner Family
DX: T25.122A Burn of first degree of left foot, initial encounter (principal); X10.2XXA Contact with fats and cooking oils, initial encounter; F41.9 Anxiety disorder, unspecified; F32.A Depression, unspecified; F17.210 Nicotine dependence, cigarettes, uncomplicated
CPT/HCPCS: 99213; G0463

== ENCOUNTER 2024-01-31 11:30 | Emergency (ER) | payer OTHER, SELFPAY ==
--- NOTE | 2024-01-31 11:33 | ED.URI ---
HPI - URI/Sore Throat General Chief Complaint: Upper Respiratory Infection Stated Complaint: Sinus/Cough Time Seen by Provider: 01/31/24 12:01 Source: patient, RN notes reviewed and old records reviewed Mode of arrival: ambulatory Limitations: no limitations History of Present Illness HPI Narrative: 38-year-old female presents to the [facility] with 10 day history of sinuses, cough. Has been taking Robitussin, states that she does use Flonase. Related Data Home Medications Medication Instructions Recorded Confirmed linaclotide 290 mcg capsule 290 mcg PO DAILY 02/21/21 01/31/24 (Linzess) buspirone 10 mg tablet 10 mg PO BID 05/16/21 01/31/24 Allergies Allergy/AdvReac Type Severity Reaction Status Date / Time diphenhydramine Allergy Unknown Hives Verified 01/31/24 11:34 clavulanic acid AdvReac Intermediate Vomiting Verified 01/31/24 11:34 Review of Systems Review of Systems: All systems reviewed & are unremarkable except as noted in HPI and below Constitutional: Constitutional: Reports no additional constitutional complaints ENT: Reports as per HPI Cardiovascular: Cardiovascular: Reports no additional cardiovascular complaints, Denies chest pain and Denies dyspnea Respiratory: Respiratory: Reports no additional respiratory complaints, Denies chest congestion, Denies cough and Denies dyspnea Gastrointestinal: Gastrointestinal: Reports no additional gastrointestinal complaints, Denies abdominal pain, Denies nausea and Denies vomiting Musculoskeletal: Musculoskeletal: Reports no additional musculoskeletal complaints Integumentary/Breasts: Skin/Breast: Reports system reviewed and no additional complaints, except as docu PMFSH Past Medical History Medical History Anxiety Depression IBS (irritable bowel syndrome) PTSD (post-traumatic stress disorder) Surgical History Surgical History H/O laparoscopy H/O tubal ligation H/O: hysterectomy Family History Family History Other Alcoholism in family Depression Social History Social History Smoking packs per day: 0.5 Smoking cigarettes per day: 10.0 Smoking status: Current every day smoker Alcohol intake: current Gender identity (if verbalized by the patient): Female Comments At the time of my signature, I reviewed and agree with the nursing past medical, surgical, social, and family history. There is no relevant family history pertinent to the patient complaint. Exam Const: General: cooperative, healthy appearing, comfortable, no acute distress, well developed, alert and well nourished Nutritional Appearance: well nourished Orientation/consciousness: patient oriented x3 Limitations: no limitations HENMT: Head: normal to inspection Ears: hearing grossly normal bilaterally, external ears normal, TM's normal bilaterally, EAC's normal, mastoids normal and no periauricular adenopathy Face/Nose/Sinus: Normal external nose present, normal facial exam and face symmetric Face and sinus: face symmetric and sinus tenderness Mouth: Yes Normal oral and palatal mucosa present, Yes lip normal and Yes tongue normal Throat: uvula midline, postnasal drainage and uvula not displaced Eyes: General: appearance normal, both eyes and all related structures Alignment and Position: alignment normal Periorbital: periorbital findings normal Neck: Neck: normal visual inspection, full ROM, no lymphadenopathy and no meningeal signs Chest: Chest palpation & inspection: normal inspection of the chest Resp: Effort & Inspection: normal respiratory effort and able to speak in complete sentences Auscultation: clear to auscultation bilaterally, no crackles, no rales, no rhonchi and no wheezes Cardio: Rate: regular rate Skin: General skin exam: normal color
[2024-01-31 11:38] VITALS: BP 113/57; PULSE 103; RESP 16; TEMP 36.3; O2SAT 99
== END 2024-01-31 12:15 | disposition home or self-care (01) ==
PROVIDERS: Emergency Provider Nurse Practitioner
DX: R09.82 Postnasal drip (principal); J01.40 Acute pansinusitis, unspecified; F17.210 Nicotine dependence, cigarettes, uncomplicated; F41.9 Anxiety disorder, unspecified; F32.A Depression, unspecified
CPT/HCPCS: 99213; G0463

== ENCOUNTER 2024-02-27 10:54 | Emergency (ER) | payer OTHER, SELFPAY ==
--- NOTE | 2024-02-27 11:02 | ED_ITS ---
HPI - URI/Sore Throat General Chief Complaint: Upper Respiratory Infection Stated Complaint: Sore Throat/Sinus Time Seen by Provider: 02/27/24 11:13 Source: patient, RN notes reviewed and old records reviewed Mode of arrival: ambulatory Limitations: no limitations History of Present Illness HPI Narrative: 38-year-old female presents to the [facility] with complaints of a sore throat that started yesterday. Treatments prior to arrival: none Related Data Home Medications Medication Instructions Recorded Confirmed linaclotide 290 mcg capsule 290 mcg PO DAILY 02/21/21 01/31/24 (Linzess) buspirone 10 mg tablet 10 mg PO BID 05/16/21 01/31/24 Allergies Allergy/AdvReac Type Severity Reaction Status Date / Time diphenhydramine Allergy Unknown Hives Verified 01/31/24 11:34 clavulanic acid AdvReac Intermediate Vomiting Verified 01/31/24 11:34 Review of Systems Review of Systems: All systems reviewed & are unremarkable except as noted in HPI and below Constitutional: Constitutional: Reports no additional constitutional complaints ENT: Reports as per HPI and Reports sore throat Cardiovascular: Cardiovascular: Reports no additional cardiovascular complaints, Denies chest pain and Denies dyspnea Respiratory: Respiratory: Reports no additional respiratory complaints, Denies chest congestion, Denies cough and Denies dyspnea Gastrointestinal: Gastrointestinal: Reports no additional gastrointestinal complaints, Denies abdominal pain, Denies nausea and Denies vomiting Musculoskeletal: Musculoskeletal: Reports no additional musculoskeletal complaints Integumentary/Breasts: Skin/Breast: Reports system reviewed and no additional complaints, except as docu PMFSH Past Medical History Medical History Anxiety Depression IBS (irritable bowel syndrome) PTSD (post-traumatic stress disorder) Surgical History Surgical History H/O laparoscopy H/O tubal ligation H/O: hysterectomy Family History Family History Other Alcoholism in family Depression Social History Social History Smoking packs per day: 0.5 Smoking cigarettes per day: 10.0 Smoking status: Current every day smoker Alcohol intake: current Gender identity (if verbalized by the patient): Female Comments At the time of my signature, I reviewed and agree with the nursing past medical, surgical, social, and family history. There is no relevant family history pertinent to the patient complaint. Exam Const: General: cooperative, healthy appearing, comfortable, no acute distress, well developed, alert and well nourished Nutritional Appearance: well nourished Orientation/consciousness: patient oriented x3 Limitations: no limitations HENMT: Head: normal to inspection Ears: hearing grossly normal bilaterally, external ears normal, TM's normal bilaterally, EAC's normal, mastoids normal and no periauricular adenopathy Face/Nose/Sinus: Normal external nose present, normal facial exam and face symmetric Face and sinus: normal facial exam and face symmetric Mouth: Yes Normal oral and palatal mucosa present, Yes lip normal and Yes tongue normal Throat: tonsils normal, uvula midline, postnasal drainage and no uvular edema Eyes: General: appearance normal, both eyes and all related structures Alignment and Position: alignment normal Periorbital: periorbital findings normal Neck: Neck: normal visual inspection, full ROM, no lymphadenopathy and no meningeal signs Chest: Chest palpation & inspection: normal inspection of the chest Resp: Effort & Inspection: normal respiratory effort and able to speak in complete sentences Auscultation: clear to auscultation bilaterally, no crackles, no rales, no rhonchi and no wheezes Cardio: Rate: regular rate Skin: General skin exam: normal color and no rashes or lesions noted Lesions: no lesions Rashes: no rashes Wounds: no wounds Neuro: General: patient oriented x3, gait normal, tone normal, moves all extremities and no meningeal signs Cognition (Neuro): normal cognition Speech: normal speech Gait exam (Neuro): Normal gait present Extrem: General: normal to inspection, full ROM, capillary refill normal and normal gait Psych: Appearance: grossly normal and well kempt Mental Status: mental status grossly normal Speech and movement: Normal speech and movement present and Clear speech present Affect: normal affect Attitude: cooperative Course Course Level of Care: Express Care Visit Vital Signs Vital signs: Vital Signs Temperature 98.9 F 02/27/24 11:03 Pulse Rate 107 H 02/27/24 11:03 Respiratory Rate 20 02/27/24 11:03 Blood Pressure 98/57 L 02/27/24 11:03 Pulse Oximetry 100 02/27/24 11:03 Oxygen Delivery Room Air 02/27/24 11:03 Temperature 98.9 F 02/27/24 11:03 Pulse Rate 107 H 02/27/24 11:03 Respiratory Rate 20 02/27/24 11:03 Blood Pressure 98/57 L 02/27/24 11:03 Pulse Oximetry 100 02/27/24 11:03 Oxygen Delivery Room Air 02/27/24 11:03 Reviewed MDM - URI/Sore Throat MDM Narrative Medical decision making narrative: Patient sitting comfortably in exam room. Nontoxic vitals stable. Patient in no acute distress Patient presents with URI Symptoms, sore throat times day Patient strep is negative, will culture Patient appropriate for outpatient treatment and follow-up Discharge instructions reviewed with patient, as well as provided in writing per nursing staff. The instructions also include specific and strict return/GO TO THE ER as well as f/u information. All questions have been answered, and the patient deny any further questions with discharge and discharge plan. Some parts of this dictation were generated by voice recognition software and may contain typographical and/or grammatical inaccuracies. Differential Diagnosis Differential diagnosis: Likely upper respiratory infection, otitis media, sinusitis, viral infection and pharyngitis Lab Data Labs: Lab Results 02/27/24 Range/Units 11:16 POC Grp A Strep Screen Negative (Negative) Review Critical Care Time Critical Care Time Critical Care Time: No Discharge Plan Discharge Clinical Impression: Upper respiratory infection, PND (post-nasal drip) Patient Disposition: Home, Self-Care Condition: Stable Instructions: Antibiotic Form, Upper Respiratory Infection (ED), Postnasal Drip (DC) Additional Instructions: Your rapid strep swab was negative today at [facility]. A throat culture will be sent to the laboratory for further testing. If the test is positive, you will receive a phone call within 48 hours and an appropriate antibiotic will be initiated at that time. -Alternate Tylenol and Motrin per package directions for fever or pain. -Antihistamine medication such as Benadryl at night and Zyrtec/Claritin/Tracy during the day can help improve symptoms. -doing daily nasal irrigations can help relieve pressure your sinuses. Things like a Neti pot -Use Flonase twice a day for 5 days then daily to help reduce the inflammation and dry up your sinuses. -You can also use Sudafed or Mucinex. Be sure to drink plenty of water with these medications at least 8 ounces with every dose and it is important to drink 8 to 10 glasses of water per day. Water is a natural decongestant -Eat and drink things that are easy to swallow, like tea or soup, or popsicles. -Oral rinses such as: Salt water gargles and/or may use topical anesthetic (eg. Chloraseptic spray) or lozenges to relieve dryness or throat pain). -Frequent hand washing or hand annealing torch operator is one of the best ways to prevent spread of infection. -Using a vaporizer or humidifier at night will also help thin secretions and help with coughing up phlegm. -Follow up with primary care provider in 3-5 days if condition is not improving - For new or worsening symptoms go directly to the nearest ER Patient Language: [place] Prescriptions: New fluticasone propionate [Flonase Allergy Relief] 50 mcg/actuation spray,suspension 2 spray intranasal DAILY Qty: 16 0RF Rx Instructions: administer into each nostril loratadine 10 mg tablet 10 mg PO DAILY Qty: 30 0RF No Action Linzess 290 mcg capsule 290 mcg PO DAILY buspirone [BuSpar] 10 mg Tablet 10 mg PO BID doxycycline monohydrate 100 mg tablet 100 mg PO BID Qty: 14 0RF Follow-up/Referrals: [facility] [Primary Care Provider] - [facility] Time of Disposition: 11:20
[2024-02-27 11:03] VITALS: BP 98/57; PULSE 107; RESP 20; TEMP 37.2; O2SAT 100
[2024-02-27 11:17] LABS: EDSTREPNEGPOS1 Negative (Negative)
== END 2024-02-27 11:29 | disposition home or self-care (01) ==
PROVIDERS: Emergency Provider Nurse Practitioner
DX: J06.9 Acute upper respiratory infection, unspecified (principal); R09.82 Postnasal drip; F17.210 Nicotine dependence, cigarettes, uncomplicated; F41.9 Anxiety disorder, unspecified; F32.A Depression, unspecified
CPT/HCPCS: 87081; 87880; 99213; G0463

== ENCOUNTER 2024-03-05 08:35 | Emergency (ER) | payer OTHER, SELFPAY ==
--- NOTE | ~2024-03-05 | XR_ITS ---
EXAMINATION: XR chest 2V DATE: 03/05/2024 08:56 INDICATION: Cough, runny nose and vomiting TECHNIQUE: frontal and lateral views of the chest were obtained. COMPARISON: Chest radiograph dated 01/29/2019 FINDINGS: Unchanged mild linear discoid atelectasis/scarring at the left lung base. No new airspace opacities, pulmonary edema, pleural effusion or pneumothorax. The cardiomediastinal silhouette is normal. Visual ized bones and soft tissues are unremarkable. IMPRESSION: 1. Unchanged mild left basilar atelectasis/scarring. No acute cardiopulmonary disease. Reviewed, dictated and finalized at location A. [facility] COMM[facility] IMPRESSION: 1. Unchanged mild left basilar atelectasis/scarring. No acute cardiopulmonary d isease.
--- NOTE | 2024-03-05 08:40 | ED_ITS ---
HPI - URI/Sore Throat General Chief Complaint: Upper Respiratory Infection Stated Complaint: cough,MARLEY Time Seen by Provider: 03/05/24 08:48 Source: patient, RN notes reviewed and old records reviewed Mode of arrival: ambulatory Limitations: no limitations History of Present Illness HPI Narrative: 38-year-old female presents to the [facility] with complaints of cough for 1 day. States that she still not feeling great, was seen 1 week ago. Has taken [id number] products Treatments prior to arrival: cold medicine Related Data Home Medications Medication Instructions Recorded Confirmed linaclotide 290 mcg capsule 290 mcg PO DAILY 02/21/21 03/05/24 (Linzess) buspirone 10 mg tablet 10 mg PO BID 05/16/21 03/05/24 Allergies Allergy/AdvReac Type Severity Reaction Status Date / Time diphenhydramine Allergy Unknown Hives Verified 03/05/24 08:41 clavulanic acid AdvReac Intermediate Vomiting Verified 03/05/24 08:41 Review of Systems Review of Systems: All systems reviewed & are unremarkable except as noted in HPI and below Constitutional: Constitutional: Reports no additional constitutional complaints ENT: Reports system reviewed and no additional complaints, except as documented Cardiovascular: Cardiovascular: Reports no additional cardiovascular com plaints, Denies chest pain and Denies dyspnea Respiratory: Respiratory: Reports as per HPI, Denies chest congestion, Reports cough and Denies dyspnea Gastrointestinal: Gastrointestinal: Reports no additional gastrointestinal complaints, Denies abdominal pain, Denies nausea and Denies vomiting Musculoskeletal: Musculoskeletal: Reports no additional musculoskeletal complaints Integumentary/Breasts: Skin/Breast: Reports system reviewed and no additional complaints, except as docu PMFSH Past Medical History Medical History Anxiety Depression IBS (irritable bowel syndrome) PTSD (post-traumatic stress disorder) Surgical History Surgical History H/O laparoscopy H/O tubal ligation H/O: hysterectomy Family History Family History Other Alcoholism in family Depression Social History Social History Smoking packs per day: 0.5 Smoking cigarettes per day: 10.0 Smoking status: Current every day smoker Alcohol intake: current Gender identity (if verbalized by the patient): Female Comments At the time of my signature, I reviewed and agree with the nursing past medical, surgical, social, and family history. There is no relevant family history pertinent to the patient complaint. Exam Const: General: cooperative, healthy appearing, comfortable, no acute distress, well developed, alert and well nourished Nutritional Appearance: well nourished Orientation/consciousness: patient oriented x3 Limitations: no limitations HENMT: Head: normal to inspection Ears: hearing grossly normal bilaterally, external ears normal, TM's normal bilaterally, EAC's normal, mastoids normal and no periauricular adenopathy Face/Nose/Sinus: Normal external nose present, normal facial exam and face symmetric Face and sinus: normal facial exam and face symmetric Mouth: Yes Normal oral and palatal mucosa present, Yes lip normal and Yes tongue normal Throat: posterior oropharynx normal, uvula midline and no uvular edema Eyes: General: appearance normal, both eyes and all related structures Alignment and Position: alignment normal Periorbital: periorbital findings normal Neck: Neck: normal visual inspection, full ROM, no lymphadenopathy and no meningeal signs Chest: Chest palpation & inspection: normal inspection of the chest Resp: Effort & Inspection: normal respiratory effort and able to speak in complete sentences Auscultation: clear to auscultation bilaterally, no crackles, no rales, no rhonchi and no wheezes Cardio: Rate: regular rate Skin: General skin exam: normal color and no rashes or lesions noted Lesions: no lesions Rashes: no rashes Wounds: no wounds Neuro: General: patient oriented x3, gait normal, tone normal, moves all extremities and no meningeal signs Cognition (Neuro): normal cognition Speech: normal speech Gait exam (Neuro): Normal gait present Extrem: General: normal to inspection, full ROM, capillary refill normal and normal gait Psych: Appearance: grossly normal and well kempt Mental Status: mental status grossly normal Speech and movement: Normal speech and movement present and Clear speech present Affect: normal affect Attitude: cooperative Course Course Level of Care: Express Care Visit Vital Signs Vital signs: Vital Signs Temperature 97.0 F L 03/05/24 08:43 Pulse Rate 95 03/05/24 08:43 Respiratory Rate 16 03/05/24 08:43 Blood Pressure 99/69 L 03/05/24 08:43 Pulse Oximetry 100 03/05/24 08:43 Oxygen Delivery Room Air 03/05/24 08:43 Temperature 97.0 F L 03/05/24 08:43 Pulse Rate 95 03/05/24 08:43 Respiratory Rate 16 03/05/24 08:43 Blood Pressure 99/69 L 03/05/24 08:43 Pulse Oximetry 100 03/05/24 08:43 Oxygen Delivery Room Air 03/05/24 08:43 Reviewed MDM - URI/Sore Throat MDM Narrative Medical decision making narrative: Patient sitting comfortably in exam room. Nontoxic, vitals stable. Patient in no acute distress Patient presents with cough x1 day, URI symptoms for 8 Patient's x-ray with no acute findings Patient appropriate for outpatient treatment and follow-up Discharge instructions reviewed with patient, as well as provided in writing per nursing staff. The instructions also include specific and strict return/GO TO THE ER as well as f/u information. All questions have been answered, and the patient deny any further questions with discharge and discharge plan. Some parts of this dictation were generated by voice recognition software and may contain typographical and/or grammatical inaccuracies. Differential Diagnosis Differential diagnosis: Likely upper respiratory infection, otitis media, sinusitis, viral infection and bronchitis Imaging Data Radiologist's impression: EXAMINATION: XR chest 2V DATE: 03/05/2024 08:56 INDICATION: Cough, runny nose and vomiting TECHNIQUE: frontal and lateral views of the chest were obtained. COMPARISON: Chest radiograph dated 01/29/2019 FINDINGS: Unchanged mild linear discoid atelectasis/scarring at the left lung base. No new airspace opacities, pulmonary edema, pleural effusion or pneumothorax. The cardiomediastinal silhouette is normal. Visualized bones and soft tissues are unremarkable. IMPRESSION: 1. Unchanged mild left basilar atelectasis/scarring. No acute cardiopulmonary disease. Critical Care Time Critical Care Time Critical Care Time: No Discharge Plan Discharge Clinical Impression: Bronchitis, Upper respiratory infection Patient Disposition: Home, Self-Care Condition: Stable Instructions: Antibiotic Form, Upper Respiratory Infection (ED), Acute Bronchitis (ED) Additional Instructions: Your symptoms are likely due to a viral illness, which is not treated with antibiotics. Typically viral infections last 10-14 days, can linger for couple of weeks. It is very important to treat your symptoms. Plenty of water, Gatorade, Pedialyte, ice pops or Jell-O. -Alternate Tylenol and Motrin per package directions for fever or pain. You can alternate every 4 hours -Antihistamine medication such as Benadryl at night and Zyrtec/Claritin/Tracy during the day can help improve symptoms. -doing daily nasal irrigations can help relieve pressure your sinuses. Things like a Neti pot -Use Flonase twice a day for 5 days then daily to help reduce the inflammation and dry up your sinuses. -You can also use Mucinex, Robitussin, or [id number] cold medicine of your choice. Be sure to drink plenty of water with this medication at least 8 ounces with every dose and it is important to drink 8 to 10 glasses of water per day. Water is a natural decongestant -Eat and drink things that are easy to swallow, like tea or soup, or popsicles. -Oral rinses such as: Salt water gargles and/or may use topical anesthetic (eg. Chloraseptic spray) or lozenges to relieve dryness or throat pain). -Frequent hand washing or hand accountant supervisor is one of the best ways to prevent spread of infection. -Using a vaporizer or humidifier at night will also help thin secretions and help with coughing up phlegm. -Follow up with primary care provider in 7-10 days if condition is not improving - For new or worsening symptoms go directly to the nearest ER Patient Language: Hebrew Prescriptions: New methylprednisolone [Medrol (Brendan)] 4 mg tablets,dose pack See Rx Instructions PO .COMPLEX Qty: 21 0RF Rx Instructions: orally per package directions albuterol sulfate 90 mcg/actuation HFA aerosol inhaler 2 puff inhalation QID PRN (Reason: shortness of breath or wheezing) Qty: 6.7 0RF (DME) Aerochamber MV Spacer See Rx Instructions .Route Qty: 1 0RF Rx Instructions: As directed No Action Linzess 290 mcg capsule 290 mcg PO DAILY buspirone [BuSpar] 10 mg Tablet 10 mg PO BID fluticasone propionate [Flonase Allergy Relief] 50 mcg/actuation spray,suspension 2 spray intranasal DAILY Qty: 16 0RF Rx Instructions: administer into each nostril loratadine 10 mg tablet 10 mg PO DAILY Qty: 30 0RF Follow-up/Referrals: [facility] [Primary Care Provider] - 1 Week ([facility]) Stand Alone Forms: Work/School Release IP Time of Disposition: 09:10
[2024-03-05 08:43] VITALS: BP 99/69; PULSE 95; RESP 16; TEMP 36.1; O2SAT 100
== END 2024-03-05 09:20 | disposition home or self-care (01) ==
PROVIDERS: Emergency Provider Nurse Practitioner
DX: J40 Bronchitis, not specified as acute or chronic (principal); J06.9 Acute upper respiratory infection, unspecified; F17.210 Nicotine dependence, cigarettes, uncomplicated; F41.9 Anxiety disorder, unspecified; F32.A Depression, unspecified
CPT/HCPCS: 71046; 99213; G0463

== ENCOUNTER 2024-05-10 14:17 | Emergency (ER) | payer OTHER, SELFPAY ==
--- NOTE | 2024-05-10 14:21 | ED_ITS ---
HPI - URI/Sore Throat General Chief Complaint: Dental/Oral Stated Complaint: right side tooth pain Time Seen by Provider: 05/10/24 14:21 Source: patient Mode of arrival: ambulatory Limitations: no limitations History of Present Illness HPI Narrative: Patient is a 38-year-old female who presents with right lower dental pain. Patient was seen for consultation at oral surgeon's office today. Patient had x-rays and was told she had a cavity and an abscess. Coming here for antibiotic treatment. Related Data Home Medications ?Medication ?Instructions ?Recorded ?Confirmed ?Last Taken ?Type linaclotide 290 mcg capsule 290 mcg PO DAILY 02/21/21 03/05/24 02/21/21 History (Linzess) buspirone 10 mg tablet 10 mg PO BID 05/16/21 03/05/24 Unknown History Allergies Allergy/AdvReac Type Severity Reaction Status Date / Time diphenhydramine Allergy Unknown Hives Verified 05/10/24 14:49 clavulanic acid AdvReac Intermediate Vomiting Verified 05/10/24 14:49 Review of Systems Review of Systems: All systems reviewed & are unremarkable except as noted in HPI and below Constitutional: Constitutional: Denies body ache(s), Denies fever(s), Denies headache(s), Denies malaise and Denies weakness Eyes: Eyes: Denies loss of vision ENT: Denies otalgia, Reports facial pain (jaw), Denies headache(s), Denies nasal discharge, Denies sinus pain and Denies sore throat Cardiovascular: Cardiovascular: Denies chest pain, Denies irregular heart rhythm and Denies dyspnea Respiratory: Respiratory: Denies dyspnea Gastrointestinal: Gastrointestinal: Denies abdominal pain, Denies melena, Denies hematochezia, Denies diarrhea, Denies nausea and Denies vomiting Musculoskeletal: Musculoskeletal: Denies back pain, Denies myalgias and Denies arthralgias Integumentary/Breasts: Skin/Breast: Denies pruritus and Denies rash Neurologic: Denies headache(s), Denies loss of vision and Denies weakness Psychiatric: Psychiatric: Reports no additional psychiatric complaints PMFSH Past Medical History Medical History Depression PTSD (post-traumatic stress disorder) Anxiety IBS (irritable bowel syndrome) Surgical History Surgical History H/O: hysterectomy H/O tubal ligation H/O laparoscopy Family History Family History Other Alcoholism in family Depression Social History Social History Smoking packs per day: 0.5 Smoking cigarettes per day: 10.0 Smoking status: Current every day smoker Alcohol intake: current Gender identity (if verbalized by the patient): Female Comments At time of signature, agree with nursing past medical, surgical, social and family history. There is no relevant family history pertinent to the presenting complaint. Exam Const: General: cooperative, healthy appearing, comfortable, no acute distress and well nourished Nutritional Appearance: well nourished Orientation/consciousness: patient oriented x3 Limitations: no limitations HENMT: Head: normal to inspection, normocephalic and atraumatic Ears: hearing grossly normal bilaterally, external ears normal, TM's normal bilaterally and mastoids normal bilaterally Face/Nose/Sinus: Normal external nose present, normal facial exam and face symmetric Face and sinus: normal facial exam and face symmetric Mouth: Yes Normal oral and palatal mucosa present, Yes lip normal, Yes tongue normal, Yes Normal salivary glands and ducts present and Yes moist mucous membranes Teeth and gingiva: abnormal tooth and associated gingiva lower right first bicuspid tender, with associated gingival edema and dentin fractured, caries and poor dentition Eyes: General: appearance normal, both eyes and all related structures Alignment and Position: alignment normal and position normal Periorbital: periorbital findings normal Eyelids: eyelids normal Pupils: Equal, round and reactive pupils present EOM: EOMs intact bilaterally Neck: Neck: normal visual inspection, full ROM, no lymphadenopathy and supple Chest: Chest palpation & inspection: normal inspection of the chest Resp: Effort & Inspection: normal respiratory effort and able to speak in complete sentences Auscultation: clear to auscultation bilaterally Cardio: Rate: regular rate Rhythm: regular rhythm Heart sounds: S1 normal heart sound present and S2 normal heart sound present GI: Inspection: normal to inspection Skin: General skin exam: normal color and no rashes or lesions noted Neuro: General: patient oriented x3 and moves all extremities Cranial nerv es: Yes Equal, round and reactive pupils present Speech: normal speech Gait exam (Neuro): Normal gait present Extrem: General: normal to inspection, full ROM and no edema Psych: Appearance: grossly normal and well kempt Mental Status: mental status grossly normal Speech and movement: Normal speech and movement present Affect: normal affect Attitude: cooperative Thought process: Normal thought process present Course Course Emergency Course: Patient is aware of diagnosis, understands and agrees to treatment plan. Anticipatory guidance given. Patient agrees to follow-up as directed and is aware of reasons to seek care at the emergency department. Portions of this record may have been created with voice recognition software Level of Care: Express Care Visit Vital Signs Vital signs: Vital Signs Temperature 37.1 C 05/10/24 14:31 Pulse Rate 91 05/10/24 14:31 Respiratory Rate 16 05/10/24 14:31 Blood Pressure 97/61 L 05/10/24 14:31 Pulse Oximetry 100 05/10/24 14:31 Oxygen Delivery Room Air 05/10/24 14:31 Temperature 37.1 C 05/10/24 14:31 Pulse Rate 91 05/10/24 14:31 Respiratory Rate 16 05/10/24 14:31 Blood Pressure 97/61 L 05/10/24 14:31 Pulse Oximetry 100 05/10/24 14:31 Oxygen Delivery Room Air 05/10/24 14:31 Reviewed MDM - URI/Sore Throat MDM Narrative Medical decision making narrative: Pt well hydrated appearing, in no respiratory distress, hemodynamically stable. Recommend supportive care. The patient is stable at time of discharge the clinical impression was discussed and the patient was given the opportunity to ask questions, which were addressed as completely as possible given the information available at present. Anticipatory guidance and return to care precautions were discussed and the importance of primary care follow-up was stressed and encouraged. The patient voiced understanding of the plan, indications to return, and the need for follow-up. Exam findings show no acute concerns or changes Patient is appropriate for outpatient treatment and follow-up. Differential Diagnosis Differential diagnosis: Likely other (Dental abscess, dental caries, tooth fracture) Medical Records Attestation: I reviewed the patient's medical records. Discharge Plan Discharge Clinical Impression: Dental abscess Patient Disposition: Home, Self-Care Condition: Stable Instructions: Dental Abscess (ED) Additional Instructions: Take antibiotic until it's gone. Brushing teeth at least twice daily with gentle flossing. Avoid temperature extremes---when you eat. Salt gargle to rinse your mouth after every meal You may apply ice to the face to reduce pain/swelling. For pain, you may take: Tylenol 650-1000mg by mouth every 4-6 hours. Do not exceed 4000mg in 24 hours. Advil (Ibuprofen) 600 mg by mouth every 6 hours. Do not exceed 2400mg in 24 hours. Also, recommend regular dental check up one-two times a year to prevent tooth decay and other periodontal disease. Follow-up with the dentist as soon as possible--see the list provided Patient Language: Barbadian Prescriptions: New clindamycin HCl 300 mg capsule 300 mg PO Q8H 10 Days Qty: 30 0RF No Action Linzess 290 mcg capsule 290 mcg PO DAILY (DME) Aerochamber MV Spacer See Rx Instructions .Route Qty: 1 0RF Rx Instructions: As directed buspirone [BuSpar] 10 mg Tablet 10 mg PO BID Follow-up/Referrals: [facility],ANGELA [Primary Care Provider] - Time of Disposition: 15:14
[2024-05-10 14:31] VITALS: BP 97/61; PULSE 91; RESP 16; TEMP 37.1; O2SAT 100
== END 2024-05-10 15:17 | disposition home or self-care (01) ==
PROVIDERS: Emergency Provider Nurse Practitioner Family
DX: K04.7 Periapical abscess without sinus (principal); F41.8 Other specified anxiety disorders; F17.210 Nicotine dependence, cigarettes, uncomplicated
CPT/HCPCS: 99213; G0463

== ENCOUNTER 2024-06-29 11:30 | Emergency (ER) | payer OTHER, SELFPAY ==
--- NOTE | 2024-06-29 11:33 | ED_ITS ---
HPI - Nausea/Vomiting/Diarrhea General Chief complaint: Nausea/Vomiting/Diarrhea Stated complaint: nauseous,tired,abdominal pain,diarrhea Time Seen by Provider: 06/29/24 11:45 Source: patient Mode of arrival: ambulatory Limitations: no limitations History of Present Illness HPI Narrative: Lachelle is a 38-year-old female patient presenting to the clinic today with complaints runny nose, fatigue, nausea, abdominal cramping and diarrhea. She reports her symptoms started yesterday after eating two cheese Hot pockets. Denies any fevers, chills, or body aches. Has had 4 diarrhea stools since 6:00 a.m. this morning. No blood in her stool. She is currently on her menses. History of IBS. Denies any urinary symptoms. Related Data Home Medications ?Medication ?Instructions ?Recorded ?Confirmed ?Last Taken ?Type linaclotide 290 mcg capsule 290 mcg PO DAILY 02/21/21 06/29/24 02/21/21 History (Linzess) buspirone 10 mg tablet 10 mg PO BID 05/16/21 06/29/24 Unknown History Allergies Allergy/AdvReac Type Severity Reaction Status Date / Time diphenhydramine Allergy Unknown Hives Verified 06/29/24 11:33 clavulanic acid AdvReac Intermediate Vomiting Verified 06/29/24 11:33 Review of Systems Review of Systems: Pertinent positives per HPI. Patient denies any fever, chills, rash, headache, visual changes, dizziness, cough, shortness of breath, chest pain, palpitations, constipation, or any urinary issues. [facility] Past Medical History Medical History Depression PTSD (post-traumatic stress disorder) Anxiety IBS (irritable bowel syndrome) Surgical History Surgical History H/O: hysterectomy H/O tubal ligation H/O laparoscopy Family History Family History Other Alcoholism in family Depression Social History Social History Smoking packs per day: 0.5 Smoking cigarettes per day: 10.0 Smoking status: Current every day smoker Alcohol intake: current Gender identity (if verbalized by the patient): Female Comments At the time of my signature, I reviewed and agree with the nursing past medical, surgical, social, and family history. There is no relevant family history pertinent to the patient complaint. Exam Narrative: General: Well-developed, well nourished, in no apparent distress Head: Normocephalic, atraumatic Eyes: Pupils equally round and reactive to light bilaterally, EOM intact, sclera and conjunctive clear, no discharge, lids normal Ears: TMs intact and clear, ear canals clear, no drainage, grossly hearing normal. Nose: Nares patent, clear nasal discharge, no inflammation, no sinus tenderness. Mouth: Oropharynx without lesions or masses, good dentition, MM dry. Neck: Supple, trachea midline, no enlargement of anterior or posterior cervical nodes, no thyroid masses or goiter palpable. Cardio: Tachycardic- Regular rate and rhythm, s1 and s2 normal, no murmur appreciated. Resp: Clear to auscultation bilaterally anteriorly and posteriorly, no rhonchi, rales, wheezing or rubs Abdomen: Soft, pliable, bowel sounds present in all quadrants, generalized tender to palpation, no organomegly, no CVAT tenderness. Course Course Emergency Course: Portions of this record may have been created with voice recognition software. Level of Care: [facility] Visit Vital Signs Vital signs: Vital Signs Temperature 36.4 C L 06/29/24 11:43 Pulse Rate 120 H 06/29/24 11:43 Respiratory Rate 16 06/29/24 11:43 Blood Pressure 136/116 H 06/29/24 11:43 Pulse Oximetry 100 06/29/24 11:43 Oxygen Delivery Room Air 06/29/24 11:43 Temperature 36.4 C L 06/29/24 11:43 Pulse Rate 120 H 06/29/24 11:43 Respiratory Rate 16 06/29/24 11:43 Blood Pressure 136/116 H 06/29/24 11:43 Pulse Oximetry 100 06/29/24 11:43 Oxygen Delivery Room Air 06/29/24 11:43 Vital signs reviewed MDM - Nausea/Vomiting/Diarrhea MDM Narrative Medical decision making narrative: At the time of visit patient is resting comfortably on the exam table. Patient appears to be nontoxic. Labs: Influenza testing was negative in the clinic today. Plan: I suspect patient has gastroenteritis with mild dehydration. Prescription for Zofran and Levsin was sent to the pharmacy. Supportive measures were discussed with the patient and they voiced understanding discharge instructions and agrees to treatment plan. Return precautions reviewed Differential Diagnosis Differential diagnosis: Likely traveler's diarrhea, food poisoning, gastroenteritis, clostridium difficile infection, drug-induced nausea and vomiting and dehydration Lab Data Labs: Lab Results 06/29/24 Range/Units 11:43 POC Influenza A Ag Negative (Negative) POC Influenza B Ag Negative (Negative) Discharge Plan Discharge Clinical Impression: Gastroenteritis Patient Disposition: Home, Self-Care Condition: Stable Instructions: Antibiotic Form, Gastroenteritis (ED) Additional Instructions: Influenza testing was negative in the clinic today. Take prescription medications only as prescribed Zofran and Levsin May take Imodium as needed for diarrhea stools as long as there is no blood in your stool. Increase fluids and stay well hydrated Tylenol/motrin for pain/fever Flonase and OTC antihistamines as directed Vicks vapor rub to open sinuses Sinus rinses for congestion Cepacol spray, cough drops, throat lozenges, warm tea with honey/lemon, gargle salt water to soothe throat BRAT diet for diarrhea Clear liquids x 24 hours then advance as tolerated for nausea/vomiting Go to the ED if you develop a worsening in your condition- high fever not controlled by Tylenol or Motrin, dehydration, weakness, lethargy, shortness of breath, or chest pain. Follow up with your PCP in 3-5 days if symptoms persist. Patient Language: Tunisian Prescriptions: New hyoscyamine sulfate [Levsin] 0.125 mg tablet 0.125 mg PO QID PRN (Reason: dyspepsia) 3 Days Qty: 12 0RF ondansetron 4 mg tablet,disintegrating 4 mg PO Q6H PRN (Reason: nausea and vomiting) 3 Days Qty: 12 0RF No Action Linzess 290 mcg capsule 290 mcg PO DAILY (DME) Aerochamber MV Spacer See Rx Instructions .Route Qty: 1 0RF Rx Instructions: As directed buspirone [BuSpar] 10 mg Tablet 10 mg PO BID Follow-up/Referrals: [facility] [Primary Care Provider] - Stand Alone Forms: Work/School Release IP Time of Disposition: 12:02 Quality NIHSS Nursing Documentation ED NIHSS nursing documentation: reviewed/agree
[2024-06-29 11:43] VITALS: BP 136/116; PULSE 120; RESP 16; TEMP 36.4; O2SAT 100
[2024-06-29] MEDS: ONDANSETRON HCL ODT 4 MG TABLET SUBLINGUAL (11:49)
[2024-06-29 11:50] LABS: EDINFLUASCREEN Negative (Negative); EDINFLUBSCREEN Negative (Negative)
== END 2024-06-29 12:07 | disposition home or self-care (01) ==
PROVIDERS: Emergency Provider Nurse Practitioner Family
DX: K21.9 Gastro-esophageal reflux disease without esophagitis (principal); F17.210 Nicotine dependence, cigarettes, uncomplicated; F41.9 Anxiety disorder, unspecified; K58.9 Irritable bowel syndrome, unspecified
CPT/HCPCS: 87804; 99213; A9270; G0463

== ENCOUNTER 2024-07-24 10:21 | Emergency (ER) | payer OTHER, SELFPAY ==
--- NOTE | 2024-07-24 10:24 | ED_ITS ---
HPI - URI/Sore Throat General Chief Complaint: Upper Respiratory Infection Stated Complaint: runny nose,sore throat,sneezing Time Seen by Provider: 07/24/24 10:55 Source: patient and RN notes reviewed Mode of arrival: ambulatory Limitations: no limitations History of Present Illness HPI Narrative: 38-year-old female presents with concern for 4 day history of runny nose, sore throat, using. She is taking Claritin without relief. Reports her daughter has similar symptoms. She denies fever. MD elicited complaint: sore throat Related Data Home Medications ?Medication ?Instructions ?Recorded ?Confirmed ?Last Taken ?Type linaclotide 290 mcg capsule 290 mcg PO DAILY 02/21/21 07/24/24 02/21/21 History (Linzess) buspirone 10 mg tablet 10 mg PO BID 05/16/21 07/24/24 Unknown History Allergies Allergy/AdvReac Type Severity Reaction Status Date / Time diphenhydramine Allergy Unknown Hives Verified 07/24/24 10:22 clavulanic acid AdvReac Intermediate Vomiting Verified 07/24/24 10:22 Review of Systems Review of Systems: CONSTITUTIONAL: Denies malaise, chills, sweats, or fever. EYES: Denies visual changes, redness, or discharge. ENT: Reports rhinorrhea, congestion, sneezing and sore throat. CARDIOVASCULAR: Denies chest pain, palpitations, or edema. RESPIRATORY: Reports cough. Denies dyspnea. GASTROINTESTINAL: Denies abdominal pain, nausea, vomiting, diarrhea SKIN: Denies rash or itching. MUSCULOSKELETAL: Denies myalgia. NEUROLOGIC: Denies headache. All systems reviewed & are unremarkable except as noted in HPI and below PMFSH Past Medical History Medical History Depression PTSD (post-traumatic stress disorder) Anxiety IBS (irritable bowel syndrome) Surgical History Surgical History H/O: hysterectomy H/O tubal ligation H/O laparoscopy Family History Family History Other Alcoholism in family Depression Social History Social History Smoking packs per day: 0.5 Smoking cigarettes per day: 10.0 Smoking status: Current every day smoker Alcohol intake: current Gender identity (if verbalized by the patient): Female Comments At time of signature, agree with nursing past medical, surgical, social and family history. There is no relevant family history pertinent to the presenting complaint Exam Narrative: GENERAL: Well-appearing, well-nourished, and in no acute distress. HEAD: Normocephalic EYES: PERRLA, conjunctivae clear ENT: Nares clear, turbinates edematous and erythematous, clear discharge. Mucous membranes moist. TM pearly gomes with sharp light reflex bilaterally; no tragal tenderness. Oropharynx not erythematous without lesions. Tonsils not enlarged and without exudate, no drooling, no hoarseness, no trismus, uvula midline. NECK: Supple. No lymphadenopathy CHEST: Clear to auscultation, breath sounds equal. No wheezing, rhonchi, rales, or stridor. No respiratory distress, speaks in full sentences. HEART: Regular rate and rhythm. No murmur heard. SKIN: Warm, dry, no rash. NEURO: Alert and oriented x3. PSYCH: Normal mood and affect Course Course Emergency Course: Patient is aware of diagnosis, understands and agrees to treatment plan. Anticipatory guidance given. Patient agrees to follow-up as directed and is aware of reasons to seek care at the emergency department. Portions of this record may have been created with voice recognition software Level of Care: [facility] Visit Vital Signs Vital signs: Reviewed. MDM - URI/Sore Throat MDM Narrative Medical decision making narrative: Differential diagnosis considered: Cabrera virus, strep pharyngitis, allergic rhinitis, upper respiratory tract infection, sinusitis, rhinosinusitis, nasopharyngitis. viral pharyngitis, otitis media, otitis externa, pneumonia, bronchitis, viral cough syndrome, viral syndrome, and influenza. Exam findings show no acute concerns or changes; patient is non-toxic appearing and is in no distress. Patient is appropriate for outpatient treatment and follow-up. Lab Data Attestation: I reviewed the patient's lab results. Critical Care Time Critical Care Time Critical Care Time: No Discharge Plan Discharge Clinical Impression: Upper respiratory infection Patient Disposition: Home Condition: Stable Instructions: Upper Respiratory Infection (ED) Additional Instructions: Your rapid strep swab was negative today at [facility]. A throat culture will be sent to the laboratory for further testing. If the test is positive, you will receive a phone call within 48 hours and an appropriate antibiotic will be initiated at that time. Your symptoms are likely due to a viral illness, which is not treated with antibiotics. Viral symptoms can be present for up to a few weeks. -Alternate Tylenol and Motrin per package directions for fever or pain. -Antihistamine medication such as Benadryl at night and Zyrtec during the day can help improve symptoms. -Eat and drink things that are easy to swallow, like tea or soup, or popsicles to suck on. -Oral rinses such as: Salt water gargles and/or may use topical anesthetic (eg. Chloraseptic spray) or lozenges to relieve dryness or throat pain). -Frequent hand washing or hand customer service leader is one of the best ways to prevent spread of infection. -Follow up with primary care provider in 2-3 days if condition is not improving; or seek ER visit if you have trouble breathing, cannot drink enough fluids, have muffled voice, difficulty opening your mouth, or severe swelling. Patient Language: Slovak Prescriptions: New cetirizine-pseudoephedrine [Zyrtec-D] 5-120 mg tablet extended release 12 hr 1 tablet PO Q12H PRN (Reason: nasal congestion) Qty: 12 0RF dextromethorphan-guaifenesin [Mucinex DM] 60-1,200 mg tablet extended release 12 hr 1 tablet PO Q12H Qty: 12 0RF No Action Linzess 290 mcg capsule 290 mcg PO DAILY buspirone [BuSpar] 10 mg Tablet 10 mg PO BID Follow-up/Referrals: [facility]A [Primary Care Provider] - Time of Disposition: 11:02
[2024-07-24 10:32] VITALS: BP 101/63; PULSE 112; RESP 16; TEMP 36.3; O2SAT 100
[2024-07-24 10:53] LABS: EDSTREPNEGPOS1 Negative (Negative)
== END 2024-07-24 11:07 | disposition home or self-care (01) ==
PROVIDERS: Emergency Provider Nurse Practitioner
DX: J06.9 Acute upper respiratory infection, unspecified (principal); F17.210 Nicotine dependence, cigarettes, uncomplicated; F41.9 Anxiety disorder, unspecified; F32.A Depression, unspecified
CPT/HCPCS: 87081; 87880; 99213; G0463

== ENCOUNTER 2024-12-31 11:21 | Emergency (ER) | payer OTHER, SELFPAY ==
--- NOTE | ~2024-12-31 | XR_ITS ---
Clinical history:Heel pain for 3 weeks. No injury EXAM:X-ray right heel minimum 2 views TECHNIQUE:2 images of the right calcaneus were obtained. Comparisons:None available FINDINGS: [ No significant degenerative change.] [ No radiographic evidence for an acute fracture or dislocation.] [ No radiopaque foreign body.] [ No sclerotic or destructive bone lesions.] IMPRESSION: 1. [ No acute bony abnormality identified.] If symptoms persist or worsen consider a short-term follow-up study or additional imaging for further assessment. Reviewed, dictated and finalized at location Q. IMPRESSION: 1. [ No acute bony abnormality identified.] If symptoms persist or worsen consider a short-term follow-up study or addition al imaging for further assessment.
[2024-12-31 11:33] VITALS: BP 105/62; PULSE 90; RESP 16; TEMP 36.8; O2SAT 100
--- NOTE | 2024-12-31 11:58 | ED.LOWEXIN ---
HPI - Extremity Injury (Lower) General Chief Complaint: Extremity Injury, Lower Stated Complaint: Left Foot Heel Pain Time Seen by Provider: 12/31/24 11:58 Source: patient Mode of arrival: ambulatory Limitations: no limitations History of Present Illness HPI Narrative: 39 yo F presents with c/o pain to L heel for 2 to 3 wks. No injury. Does admit that she wears flip flops often. States only thing that helps pain is when her massages heel. All systems reviewed and negative except as noted above. Related Data Home Medications ?Medication ?Instructions ?Recorded ?Confirmed ?Last Taken ?Type linaclotide 290 mcg capsule 290 mcg PO DAILY 02/21/21 07/24/24 02/21/21 History (Linzess) buspirone 10 mg tablet 10 mg PO BID 05/16/21 07/24/24 Unknown History Allergies Allergy/AdvReac Type Severity Reaction Status Date / Time diphenhydramine Allergy Unknown Hives Verified 07/24/24 10:22 clavulanic acid AdvReac Intermediate Vomiting Verified 07/24/24 10:22 PMFSH Past Medical History Medical History Depression PTSD (post-traumatic stress disorder) Anxiety IBS (irritable bowel syndrome) Surgical History Surgical History H/O: hysterectomy H/O tubal ligation H/O laparoscopy Family History Family History Other Alcoholism in family Depression Social History Social History Smoking packs per day: 0.5 Smoking cigarettes per day: 10.0 Smoking status: Current every day smoker Alcohol intake: current Gender identity (if verbalized by the patient): Female Comments At time of signature, agree with nursing past medical, surgical, social and family history. There is no relevant family history pertinent to the presenting complaint. Exam Narrative: GENERAL: This is a well-nourished, well-developed patient, in no apparent distress. HEAD: normocephalic, atraumatic. EYES: PERRL. Sclera clear/white. Vision is grossly intact. EARS: External ears normal NOSE: External nose normal NECK: Neck supple, non-tender without lymphadenopathy, masses or thyromegaly. CARDIOVASCULAR: Regular rate and rhythm without murmurs, gallops, or rubs. RESPIRATORY: Clear to auscultation. Breath sounds equal bilaterally. No wheezes, rales, or rhonchi. SKIN: warm, Dry, intact with no suspicious lesions or rash, good texture and turgor. NEURO: awake, alert, and oriented to person, place and time. There were no obvious focal neurologic abnormalities. EXTREMITIES: Pain to lateral and medial aspect of left heel. No swelling, erythema or warmth noted. No pain to plantar aspect of foot. No tenderness on palpation of Achilles tendon. Range of motion is normal. Course Course Level of Care: Express [facility] Visit Vital Signs Vital signs: Vital Signs Temperature 36.8 C 12/31/24 11:33 Pulse Rate 90 12/31/24 11:33 Respiratory Rate 16 12/31/24 11:33 Blood Pressure 105/62 12/31/24 11:33 Pulse Oximetry 100 12/31/24 11:33 Temperature 36.8 C 12/31/24 11:33 Pulse Rate 90 12/31/24 11:33 Respiratory Rate 16 12/31/24 11:33 Blood Pressure 105/62 12/31/24 11:33 Pulse Oximetry 100 12/31/24 11:33 Reviewed MDM - Extremity Injury (Lower) MDM Narrative Medical decision making narrative: x-ray of left heel is normal. Discussed results with patient. Recommend ibuprofen, rest, ice. Supportive shoes, no flip-flops. Will follow up with primary care physician if pain is not improving. Imaging Data My impression: agree with radiologist Radiologist's impression: Clinical history:Heel pain for 3 weeks. No injury EXAM:X-ray right heel minimum 2 views TECHNIQUE:2 images of the right calcaneus were obtained. Comparisons:None available FINDINGS: [ No significant degenerative change.] [ No radiographic evidence for an acute fracture or dislocation.] [ No radiopaque foreign body.] [ No sclerotic or destructive bone lesions.] IMPRESSION: 1. [ No acute bony abnormality identified.] If symptoms persist or worsen consider a short-term follow-up study or additional imaging for further assessment. Reviewed, dictated and finalized at location Q. Discharge Plan Discharge Clinical Impression: Pain of left heel Patient Disposition: Home Condition: Stable Instructions: Plantar Fasciitis (ED) Additional Instructions: The x-ray of your left heel was normal. Take ibuprofen or Tylenol every 6-8 hours as needed for pain. Apply ice as needed for pain. Wear supportive shoes such as a tennis shoe. Avoid wearing sandals or flip-flops. Follow-up with dispensing audiologist if pain is not improving. Patient Language: Setswana Prescriptions: No Action Linzess 290 mcg capsule 290 mcg PO DAILY cetirizine-pseudoephedrine [Zyrtec-D] 5-120 mg tablet extended release 12 hr 1 tablet PO Q12H PRN (Reason: nasal congestion) Qty: 12 0RF dextromethorphan-guaifenesin [Mucinex DM] 60-1,200 mg tablet extended release 12 hr 1 tablet PO Q12H Qty: 12 0RF buspirone [BuSpar] 10 mg Tablet 10 mg PO BID Follow-up/Referrals: [facility],ANGELA [Primary Care Provider, Medical] Time of Disposition: 12:33
== END 2024-12-31 12:35 | disposition home or self-care (01) ==
PROVIDERS: Emergency Provider Nurse Practitioner Family
DX: M79.672 Pain in left foot (principal); F17.210 Nicotine dependence, cigarettes, uncomplicated; F41.9 Anxiety disorder, unspecified; F32.A Depression, unspecified
CPT/HCPCS: 73650; 99213; G0463

== ENCOUNTER 2025-02-12 13:15 | Emergency (ER) | payer OTHER, SELFPAY ==
--- NOTE | 2025-02-12 13:19 | ED.URI ---
HPI - URI/Sore Throat General Chief Complaint: Upper Respiratory Infection Stated Complaint: Sinus/Sore Throat Time Seen by Provider: 02/12/25 13:35 Source: patient, RN notes reviewed and old records reviewed Mode of arrival: ambulatory Limitations: no limitations History of Present Illness HPI Narrative: 39-year-old female presents to the [facility] with 10-11 day of sinus pain and pressure. Worse over the last 2-3 days. Patient states on the 01 of February started with a postnasal drainage, sinus congestion, right ear pressure, nasal congestion with clear drainage, sore throat and cough. Last 2-3 days has had a low-grade fever. Has been taking DayQuil and NyQuil. Onset (ago): day(s) (01-19) Related Data Home Medications ?Medication ?Instructions ?Recorded ?Confirmed ?Last Taken ?Type linaclotide 290 mcg capsule 290 mcg PO DAILY 02/21/21 07/24/24 02/21/21 History (Linzess) buspirone 10 mg tablet 10 mg PO BID 05/16/21 07/24/24 Unknown History Allergies Allergy/AdvReac Type Severity Reaction Status Date / Time diphenhydramine Allergy Unknown Hives Verified 02/12/25 13:33 clavulanic acid AdvReac Intermediate Vomiting Verified 02/12/25 13:33 Review of Systems Review of Systems: All systems reviewed & are unremarkable except as noted in HPI and below Constitutional: Constitutional: Reports no additional constitutional complaints ENT: Reports as per HPI Cardiovascular: Cardiovascular: Reports no additional cardiovascular complaints, Denies chest pain and Denies dyspnea Respiratory: Respiratory: Reports no additional respiratory complaints, Denies chest congestion, Denies cough and Denies dyspnea Musculoskeletal: Musculoskeletal: Reports no additional musculoskeletal complaints Integumentary/Breasts: Skin/Breast: Reports system reviewed and no additional complaints, except as docu PMFSH Past Medical History Medical History Depression PTSD (post-traumatic stress disorder) Anxiety IBS (irritable bowel syndrome) Surgical History Surgical History H/O: hysterectomy H/O tubal ligation H/O laparoscopy Family History Family History Other Alcoholism in family Depression Social History Social History Smoking packs per day: 0.5 Smoking cigarettes per day: 10.0 Smoking status: Current every day smoker Alcohol intake: current Gender identity (if verbalized by the patient): Female Comments At the time of my signature, I reviewed and agree with the nursing past medical, surgical, social, and family history. There is no relevant family history pertinent to the patient complaint. Exam Const: General: cooperative, healthy appearing, comfortable, no acute distress, well developed, alert and well nourished Nutritional Appearance: well nourished Orientation/consciousness: patient oriented x3 Limitations: no limitations HENMT: Head: normal to inspection Ears: hearing grossly normal bilaterally, external ears normal, TM's normal bilaterally, EAC's normal, mastoids normal and no periauricular adenopathy Face and sinus: face symmetric, no ecchymosis, no erythema and sinus tenderness frontal and maxillary Mouth: Yes Normal oral and palatal mucosa present, Yes lip normal, Yes tongue normal and Yes moist mucous membranes Throat: posterior oropharynx normal, uvula midline and no uvular edema Eyes: General: appearance normal, both eyes and all related structures Alignment and Position: alignment normal Neck: Neck: normal visual inspection, full ROM, no lymphadenopathy and no meningeal signs Chest: Chest palpation & inspection: normal inspection of the chest Resp: Effort & Inspection: normal respiratory effort and able to speak in complete sentences Auscultation: clear to auscultation bilaterally, no crackles, no rales, no rhonchi and no wheezes Cardio: Rate: regular rate Skin: General skin exam: normal color and no rashes or lesions noted Neuro: General: patient oriented x3, gait normal, moves all extremities and no meningeal signs Cognition (Neuro): normal cognition Speech: normal speech Gait exam (Neuro): Normal gait present Extrem: General: normal to inspection, full ROM, capillary refill normal and normal gait Psych: Appearance: grossly normal and well kempt Mental Status: mental status grossly normal Speech and movement: Normal speech and movement present and Clear speech present Affect: normal affect Attitude: cooperative Course Course Level of Care: Express Care Visit Vital Signs Vital signs: Vital Signs Temperature 98.9 F 02/12/25 13:23 Pulse Rate 111 H 11/04/25 13:23 Respiratory Rate 18 02/12/25 13:23 Blood Pressure 110/64 02/12/25 13:23 Pulse Oximetry 100 02/12/25 13:23 Oxygen Delivery Room Air 02/12/25 13:23 Temperature 98.9 F 02/12/25 13:23 Pulse Rate 111 H 02/12/25 13:23 Respiratory Rate 18 02/12/25 13:23 Blood Pressure 110/64 02/12/25 13:23 Pulse Oximetry 100 02/12/25 13:23 Oxygen Delivery Room Air 02/12/25 13:23 Reviewed MDM - URI/Sore Throat MDM Narrative Medical decision making narrative: Patient sitting in exam room. Patient nontoxic, vitals stable. Patient presents with 10-11 day history of sinus pain, increasing with new onset low-grade fevers. No need for further testing. Patient is appropriate for outpatient treatment with close follow-up Discharge instructions reviewed with patient, as well as provided in writing per nursing staff. The instructions also include specific and strict return/GO TO THE ER as well as f/u information. All questions have been answered, and the patient deny any further questions with discharge and discharge plan. Some parts of this dictation were generated by voice recognition software and may contain typographical and/or grammatical inaccuracies. Differential Diagnosis Differential diagnosis: Likely upper respiratory infection, otitis media, sinusitis, viral infection, bronchitis, influenza and pharyngitis Critical Care Time Critical Care Time Critical Care Time: No Discharge Plan Discharge Clinical Impression: Sinusitis Qualifiers: Sinusitis location: pansinusitis Chronicity: acute Recurrence: not specified as recurrent Qualified Code(s): J01.40 - Acute pansinusitis, unspecified Patient Disposition: Home Condition: Stable Instructions: Antibiotic Form, Sinusitis (ED) Patient Language: Luxembourgish Prescriptions: New doxycycline monohydrate 100 mg tablet 100 mg PO BID Qty: 14 0RF fluticasone propionate [Flonase Allergy Relief] 50 mcg/actuation spray,suspension 2 spray intranasal DAILY Qty: 16 0RF Rx Instructions: administer into each nostril No Action Linzess 290 mcg capsule 290 mcg PO DAILY buspirone [BuSpar] 10 mg Tablet 10 mg PO BID Follow-up/Referrals: [facility] [Primary Care Provider, Medical] Time of Disposition: 13:53
[2025-02-12 13:23] VITALS: BP 110/64; PULSE 111; RESP 18; TEMP 37.2; O2SAT 100
== END 2025-02-12 13:57 | disposition home or self-care (01) ==
PROVIDERS: Emergency Provider Nurse Practitioner
DX: J01.40 Acute pansinusitis, unspecified (principal); F41.9 Anxiety disorder, unspecified; F32.A Depression, unspecified; F17.210 Nicotine dependence, cigarettes, uncomplicated
CPT/HCPCS: 99213; G0463

== ENCOUNTER 2025-02-16 13:02 | Emergency (ER) | payer OTHER, SELFPAY ==
[2025-02-16 13:13] VITALS: BP 99/61; PULSE 97; RESP 18; TEMP 36.7; O2SAT 100
--- NOTE | 2025-02-16 13:18 | ED.GENADULT ---
HPI - General Adult General Chief complaint: Dizziness Stated complaint: Dizziness/Sinus Time Seen by Provider: 02/16/25 13:18 Mode of arrival: ambulatory Limitations: no limitations History of Present Illness HPI narrative: 39-year-old female presents with concern for ongoing sinus infection symptoms an adverse affects of any antibiotic. Reports she has been taking doxycycline for 4 days for sinus infection. Reports his sinus symptoms have not improved and she now has a cough. She also reports she thinks the doxycycline is causing her to have nausea and vomiting and feel dizzy. She reports she is throughout the medication 15 minutes after taking her for the last 3 doses. She denies any rash, swollen lips, swollen tongue. MD complaint: Medication problem Related Data Home Medications ?Medication ?Instructions ?Recorded ?Confirmed ?Last Taken ?Type linaclotide 290 mcg capsule 290 mcg PO DAILY 02/21/21 07/24/24 02/21/21 History (Linzess) buspirone 10 mg tablet 10 mg PO BID 05/16/21 07/24/24 Unknown History Allergies Allergy/AdvReac Type Severity Reaction Status Date / Time diphenhydramine Allergy Unknown Hives Verified 02/16/25 13:21 clavulanic acid AdvReac Intermediate Vomiting Verified 02/16/25 13:21 Review of Systems Review of Systems: CONSTITUTIONAL: Reports malaise. Denies chills, sweats, or fever. EYES: Denies visual changes, redness, or discharge. ENT: Reports rhinorrhea, congestion CARDIOVASCULAR: Denies chest pain, palpitations, or edema. RESPIRATORY: Reports cough. Denies dyspnea. GASTROINTESTINAL: Denies abdominal pain, diarrhea. Reports nausea and vomiting SKIN: Denies rash or itching. MUSCULOSKELETAL: Denies back pain, joint pain, or myalgia. NEUROLOGIC: Denies numbness, weakness. Reports headache. PSYCHIATRIC: Denies anxiety or depression. All systems reviewed & are unremarkable except as noted in HPI and below PMFSH Past Medical History Medical History Depression PTSD (post-traumatic stress disorder) Anxiety IBS (irritable bowel syndrome) Surgical History Surgical History H/O: hysterectomy H/O tubal ligation H/O laparoscopy Family History Family History Other Alcoholism in family Depression Social History Social History Smoking packs per day: 0.5 Smoking cigarettes per day: 10.0 Alcohol intake: current Gender identity (if verbalized by the patient): Female Comments At time of signature, agree with nursing past medical, surgical, social and family history. There is no relevant family history pertinent to the presenting complaint Exam Narrative: GENERAL: Well-appearing, well-nourished, and in no acute distress. HEAD: Normocephalic, atraumatic. EYES: PERRLA, sclera clear, and EOMI. No nystagmus. ENT: Nares clear. Mucous membranes moist. NECK: Supple. CHEST: No respiratory distress. Clear to auscultation. No bony deformities, no asymmetry. Speaks in full sentences. Cough noted HEART: Regular rate and rhythm. No murmur heard. Normal peripheral pulses. SKIN: Warm, dry, no visible rash. NEURO: Alert and oriented x3 PSYCH: Normal mood and affect Course Course Emergency Course: Patient is aware of diagnosis, understands and agrees to treatment plan. Anticipatory guidance given. Patient agrees to follow-up as directed and is aware of reasons to seek care at the emergency department. Portions of this record may have been created with voice recognition software Level of Care: Express Care Visit Vital Signs Vital signs: Vital Signs Temperature 98.0 F 02/16/25 13:13 Pulse Rate 97 02/16/25 13:13 Respiratory Rate 18 02/16/25 13:13 Blood Pressure 99/61 L 02/16/25 13:13 Pulse Oximetry 100 02/16/25 13:13 Oxygen Delivery Room Air 02/16/25 13:13 Temperature 98.0 F 02/16/25 13:13 Pulse Rate 97 02/16/25 13:13 Respiratory Rate 18 02/16/25 13:13 Blood Pressure 99/61 L 02/16/25 13:13 Pulse Oximetry 100 02/16/25 13:13 Oxygen Delivery Room Air 02/16/25 13:13 Reviewed. Medical Decision Making MDM Narrative Medical decision making narrative: The patient was evaluated by myself in the express care. History is obtained from patient who is an independent historian and physical exam was performed.? Available medical records were reviewed at this time. ? Exam findings show no acute concerns or changes; patient is non-toxic appearing and is in no distress. Patient is appropriate for outpatient treatment and follow-up. ? I have evaluated and discussed social determinants of health with the patient that could potentially impact subsequent diagnosis and treatment plans. ? Differential diagnosis and treatment plan were discussed with the patient. Patient agrees with discussion and after shared medical decision making agrees with plan of care. All questions were answered to the patient's satisfaction. Vital Signs Vital Signs: Vital Signs Temperature 98.0 F 02/16/25 13:13 Pulse Rate 97 02/16/25 13:13 Respiratory Rate 18 02/16/25 13:13 Blood Pressure 99/61 L 02/16/25 13:13 Pulse Oximetry 100 02/16/25 13:13 Oxygen Delivery Room Air 02/16/25 13:13 Temperature 98.0 F 02/16/25 13:13 Pulse Rate 97 02/16/25 13:13 Respiratory Rate 18 02/16/25 13:13 Blood Pressure 99/61 L 02/16/25 13:13 Pulse Oximetry 100 02/16/25 13:13 Oxygen Delivery Room Air 02/16/25 13:13 Critical Care Time Critical Care Time Critical Care Time: No Discharge Plan Discharge Clinical Impression: Adverse effect of systemic antibiotic, Sinusitis Patient Disposition: Home Condition: Stable Instructions: Antibiotic Form, Sinusitis (ED) Additional Instructions: Symptomatic treatment of a sinus infection aims to relieve symptoms. These treatments do not shorten the duration of illness. Nonprescription pain medications, such as acetaminophen (eg, Tylenol) or ibuprofen (eg, Motrin, Advil), are recommended for pain. Flushing the nose and sinuses with a saline solution several times per day has been proven to decrease pain associated with congestion and shorten the duration of symptoms. Nasal steroids (such as Flonase, 2 sprays in each nostril daily) can help to reduce swelling inside the nose, usually within two to three days. These drugs have few side effects and relieve symptoms in most people. Oral decongestants (pseudoephedrine and phenylephrine) may be helpful if you have associated symptoms of ear pain or fullness. Medications to thin secretions (such as guaifenesin) may help to clear mucus. Please follow-up with your primary care doctor in the next 1-2 days. If you cannot follow-up with your primary care doctor please go to the ED for any urgent issues. If you have any worsening of symptoms or any other concerns please go to the ED immediately. Patient Language: Martiniquais Prescriptions: New amoxicillin 875 mg tablet 875 mg PO Q12H 10 Days Qty: 20 0RF methylprednisolone [Medrol (Brendan)] 4 mg tablets,dose pack See Rx Instructions .ROUTE .COMPLEX Qty: 21 0RF Rx Instructions: orally per package directions ondansetron 4 mg tablet,disintegrating 4 mg PO Q6H PRN (Reason: nausea and vomiting) Qty: 4 0RF Discontinued doxycycline monohydrate 100 mg tablet 100 mg PO BID Qty: 14 0RF No Action Linzess 290 mcg capsule 290 mcg PO DAILY buspirone [BuSpar] 10 mg Tablet 10 mg PO BID fluticasone propionate [Flonase Allergy Relief] 50 mcg/actuation spray,suspension 2 spray intranasal DAILY Qty: 16 0RF Rx Instructions: administer into each nostril Follow-up/Referrals: [facility] [Primary Care Provider, Medical] Time of Disposition: 13:39
== END 2025-02-16 14:05 | disposition home or self-care (01) ==
PROVIDERS: Emergency Provider Nurse Practitioner
DX: R11.2 Nausea with vomiting, unspecified (principal); R42 Dizziness and giddiness; T36.4X5A Adverse effect of tetracyclines, initial encounter; J32.9 Chronic sinusitis, unspecified; F41.9 Anxiety disorder, unspecified; F32.A Depression, unspecified; F17.210 Nicotine dependence, cigarettes, uncomplicated
CPT/HCPCS: 99213; G0463

== ENCOUNTER 2025-03-25 13:11 | Emergency (ER) | payer OTHER, SELFPAY ==
[2025-03-25 13:20] VITALS: BP 96/59; PULSE 104; RESP 16; TEMP 37.2; O2SAT 99
[2025-03-25 14:01] LABS: EDSTREPNEGPOS1 Negative (Negative)
--- NOTE | 2025-03-25 14:31 | ED_ITS ---
HPI - URI/Sore Throat General Chief Complaint: Upper Respiratory Infection Stated Complaint: STUFFY NOSE/SORE THROAT Time Seen by Provider: 03/25/25 13:45 Source: patient and RN notes reviewed Mode of arrival: ambulatory Limitations: no limitations History of Present Illness HPI Narrative: 39-year-old female presents Express Care daughter complaining of upper respiratory symptoms for approximately 6 days. Patient reports cough, congestion, sore throat. Patient denies any fevers, body aches, chills nausea vomiting, diarrhea, chest pain, difficulty breathing, any other upper respiratory symptoms, any other symptoms. Patient taking [id number] cold and flu medication without relief. Related Data Home Medications ?Medication ?Instructions ?Recorded ?Confirmed ?Last Taken ?Type linaclotide 290 mcg capsule 290 mcg PO DAILY 02/21/21 07/24/24 02/21/21 History (Linzess) buspirone 10 mg tablet 10 mg PO BID 05/16/21 Unknown History Allergies Allergy/AdvReac Type Severity Reaction Status Date / Time diphenhydramine Allergy Unknown Hives Verified 02/16/25 13:21 clavulanic acid AdvReac Intermediate Vomiting Verified 02/16/25 13:21 Review of Systems Review of Systems: CONSTITUTIONAL: Denies fever, chills, or sweats. EYES: Denies visual changes, redness, or discharge. ENT: Denies rhinorrhea, or otalgia. Positive for congestion and sore throat. CARDIOVASCULAR: Denies chest pain, palpitations, or edema. RESPIRATORY: Positive for cough. Negative for wheezing or dyspnea. GASTROINTESTINAL: Denies abdominal pain, nausea, vomiting, or diarrhea. GENITOURINARY: Denies dysuria or hematuria. SKIN: Denies rash or itching. MUSCULOSKELETAL: Denies back pain, joint pain, or myalgia. NEUROLOGIC: Denies headache, numbness, or weakness. PSYCHIATRIC: Denies anxiety or depression. All other systems reviewed are negative, except as documented in HPI. [facility] Past Medical History Medical History Depression PTSD (post-traumatic stress disorder) Anxiety IBS (irritable bowel syndrome) Surgical History Surgical History H/O: hysterectomy H/O tubal ligation H/O laparoscopy Family History Family History Other Alcoholism in family Depression Social History Social History Smoking packs per day: 0.5 Smoking cigarettes per day: 10.0 Smoking status: Current every day smoker Alcohol intake: current Gender identity (if verbalized by the patient): Female Comments At the time of my signature, I reviewed and agree with the nursing past medical, surgical, social, and family history. There is no relevant family history pertinent to the patient complaint. Exam Narrative: GENERAL: This is a well-nourished, well-developed adult, in no apparent distress. They are non ill-appearing, nontoxic appearing. HEAD: normocephalic, atraumatic. EYES: Sclera clear/white. Conjunctiva normal. Vision is grossly intact. Extraocular movements intact EARS: External ears normal, auditory canals clear and without drainage, TMs normal without perforation. Hearing grossly intact. NOSE: External nose normal with no obvious nasal discharge, nasal turbinates without redness, no rhinorrhea. THROAT: Mucous membranes moist, posterior pharynx erythemic red and patchy witho ut swelling. Uvula midline. NECK: Neck supple, mild tender cervical lymphadenopathy, masses or thyromegaly. CARDIOVASCULAR: Regular rate and rhythm without murmurs, gallops, or rubs. RESPIRATORY: Clear to auscultation. Breath sounds equal bilaterally. No wheezes, rales, or rhonchi. GASTROINTESTINAL: Abdomen soft, non-tender, nondistended. Bowel sounds are active. No hepato-splenomegaly, or palpable masses. No guarding. SKIN: warm, Dry, intact with no suspicious lesions or rash, good texture and turgor. NEURO: awake, alert, and oriented to person, place and time. There were no obvious focal neurologic abnormalities. EXTREMITIES: No joint tenderness, effusion, or edema noted. BACK: Nontender without deformity. No CVA tenderness. Course Course Level of Care: Express Care Visit Vital Signs Vital signs: Vital Signs Temperature 98.9 F 03/25/25 13:20 Pulse Rate 104 H 03/25/25 13:20 Respiratory Rate 16 03/25/25 13:20 Blood Pressure 96/59 L 03/25/25 13:20 Pulse Oximetry 99 03/25/25 13:20 Oxygen Delivery Room Air 03/25/25 13:20 Temperature 98.9 F 03/25/25 13:20 Pulse Rate 104 H 03/25/25 13:20 Respiratory Rate 16 03/25/25 13:20 Blood Pressure 96/59 L 03/25/25 13:20 Pulse Oximetry 99 03/25/25 13:20 Oxygen Delivery Room Air 03/25/25 13:20 [facility] Narrative Medical decision making narrative: Rapid strep negative. A throat culture is pending. Patient's daughter is positive for strep. Through shared decision making with patient elected to go ahead and start antibiotic therapy prior to culture results. Will treat with amoxicillin. Discussed physical exam findings. Advised supportive measures and signs/symptoms to go to the ER. Pt is appropriate for outpt treatment and f/u. Differential Diagnosis Differential Diagnosis: Differential diagnostic considerations for upper respiratory infection include upper respiratory infection, croup, otitis media, sinusitis, viral infection, bronchitis, influenza, pharyngitis, strep, uvulitis. Lab Data [facility] Lab Attestation statement: I personally reviewed the patient's lab results. Labs: Lab Results 03/25/25 Range/Units 13:26 POC Grp A Strep Screen Negative (Negative) Critical Care Time Critical Care Time Critical Care Time: No Discharge Plan Discharge Clinical Impression: Pharyngitis Qualifiers: Pharyngitis/tonsillitis etiology: unspecified etiology Qualified Code(s): J02.9 - Acute pharyngitis, unspecified Patient Disposition: Home Condition: Stable Instructions: Antibiotic Form, Strep Throat (ED) Additional Instructions: ?Please take the amoxicillin as prescribed until gone. ?You will be contagious for 24 hours after starting the medication. ?After 24 hours on antibiotics throw tooth brush away and start using a new one. Wash your sheets and cup/water bottle that is used daily. Do not share drinks. Take Tylenol or Ibuprofen as needed for pain or fevers, follow instructions on the bottle. Rest and stay hydrated. ?Follow up with your PCP in 3 days if symptoms are not improving. ?Go to the ER immediately if you develop worsening symptoms such as shortness of breath, difficulty swallowing, chest pain, vomiting or any serious concerns. ? Patient Language: [place] Prescriptions: New amoxicillin 500 mg tablet 500 mg PO Q12H 10 Days Qty: 20 0RF No Action Linzess 290 mcg capsule 290 mcg PO DAILY amoxicillin 875 mg tablet 875 mg PO Q12H 10 Days Qty: 20 0RF methylprednisolone [Medrol (Brendan)] 4 mg tablets,dose pack See Rx Instructions .ROUTE .COMPLEX Qty: 21 0RF Rx Instructions: orally per package directions ondansetron 4 mg tablet,disintegrating 4 mg PO Q6H PRN (Reason: nausea and vomiting) Qty: 4 0RF buspirone [BuSpar] 10 mg Tablet 10 mg PO BID fluticasone propionate [Flonase Allergy Relief] 50 mcg/actuation spray,suspension 2 spray intranasal DAILY Qty: 16 0RF Rx Instructions: administer into each nostril [facility] Time of Disposition: 14:15
== END 2025-03-25 14:20 | disposition home or self-care (01) ==
DX: J02.9 Acute pharyngitis, unspecified (principal); F17.210 Nicotine dependence, cigarettes, uncomplicated; F41.9 Anxiety disorder, unspecified; F32.A Depression, unspecified
CPT/HCPCS: 87081; 87880; 99213; G0463